=== PATIENT | male | born 1945 | race Caucasian/White ===

== ENCOUNTER → 2024-04-27 | Outpatient (CLI) | payer OTHER, MEDICAID, SELFPAY ==
[2024-04-27 10:32] LABS: Basophils # (Auto) 0.1 Thou/mm3 (0.0-0.2); Basophils % (Auto) 1 % (0-2.5); Eosinophils # (Auto) 0.3 Thou/mm3 (0.0-0.5); Eosinophils % (Auto) 5 % (0-10); Hematocrit 50.3 % (41.0-53.0); Hemoglobin 16.4 g/dL (13.5-16.0); Immature Granulocytes % (Auto) 0 % (0-0); Immature Granulocytes Auto 0.01 Thou/mm3 (0.00-0.00); Lymphocytes # (Auto) 0.8 Thou/mm3 (1.0-4.8); Lymphocytes % (Auto) 13 % (10-50); Mean Corpuscular HGB Conc 32.6 g/dl (31.0-37.0); Mean Corpuscular Hemoglobin 31.7 pg (25.0-35.0); Mean Corpuscular Volume 97 fL (80-100); Monocytes # (Auto) 0.6 Thou/mm3 (0.0-0.8); Monocytes % (Auto) 10 % (0-12); Neutrophils # (Auto) 4.2 Thou/mm3 (1.8-7.7); Neutrophils % (Auto) 71 % (37-80); Nucleated Red Blood Cell % 0 /100 WBC (0); Platelet Count 263 Thou/mm3 (140-440); RDW Standard Deviation 48.2 fL (35.1-43.9); Red Blood Count 5.18 Miln/mm3 (4.50-5.90); White Blood Count 5.9 Thou/mm3 (3.8-10.6)
[2024-04-27 11:01] LABS: Alanine Aminotransferase 18 U/L (10-49); Albumin, Serum 4.5 gm/dL (3.4-4.8); Alkaline Phosphatase 78 U/L (46-116); Anion Gap 5 (7-16); Aspartate Amino Transferase 28 U/L (0-34); BUN/Creatinine Ratio 14 Ratio (12-20); Bilirubin,Direct 0.3 mg/dL (0.0-0.3); Blood Urea Nitrogen 20 mg/dL (9-23); Calcium 9.7 mg/dL (8.3-10.6); Cardiac Risk Estimate 2.6 RATIO (4.0-6.7); Chloride 102 mMol/L (98-107); Cholesterol 171 mg/dL (132-200); Creatinine (Component) 1.4 mg/dL (0.6-1.3); Glucose 103 mg/dL (74-106); HDL Cholesterol 66 mg/dL (40-60); LDL Cholesterol,Calculated 90 mg/dL (0-130); Osmolality,Calculated 278 (275-295); Potassium 4.6 mMol/L (3.4-5.1); Sodium 138 mMol/L (136-145); Total Protein 6.6 gm/dL (5.7-8.2); Triglycerides 76 mg/dL (30-150); eGFR 51 See Note
[2024-04-27 13:59] LABS: Iron 135 mcg/dL (65-175)
== END | disposition home or self-care (01) ==
LOC: COPL 09:55
PROVIDERS: PCP Family Medicine; Referring Provider Family Medicine; Visit Provider Family Medicine
DX: I25.10 Atherosclerotic heart disease of native coronary artery without angina pectoris (principal); D64.9 Anemia, unspecified
CPT/HCPCS: 36415; 80048; 80061; 80076; 83540; 85025

== ENCOUNTER → 2025-03-25 | Outpatient (CLI) | payer OTHER, MEDICAID, SELFPAY ==
[2025-03-25 14:29] LABS: Basophils # (Auto) 0.0 Thou/mm3 (0.0-0.2); Basophils % (Auto) 1 % (0-2.5); Eosinophils # (Auto) 0.4 Thou/mm3 (0.0-0.5); Eosinophils % (Auto) 7 % (0-10); Hematocrit 43.3 % (41.0-53.0); Hemoglobin 14.6 g/dL (13.5-16.0); Immature Granulocytes Auto 0.02 Thou/mm3 (0.00-0.00); Lymphocytes # (Auto) 0.8 Thou/mm3 (1.0-4.8); Lymphocytes % (Auto) 16 % (10-50); Mean Corpuscular HGB Conc 33.7 g/dl (31.0-37.0); Mean Corpuscular Hemoglobin 31.9 pg (25.0-35.0); Mean Corpuscular Volume 95 fL (80-100); Monocytes # (Auto) 0.5 Thou/mm3 (0.0-0.8); Monocytes % (Auto) 10 % (0-12); Neutrophils # (Auto) 3.5 Thou/mm3 (1.8-7.7); Neutrophils % (Auto) 66 % (37-80); Nucleated Red Blood Cell # 0.00 Thou/mm3 (0.00-0.00); Nucleated Red Blood Cell % 0 /100 WBC (0); Platelet Count 259 Thou/mm3 (140-440); RDW Standard Deviation 47.7 fL (35.1-43.9); Red Blood Count 4.58 Miln/mm3 (4.50-5.90); White Blood Count 5.2 Thou/mm3 (3.8-10.6)
[2025-03-25 14:44] LABS: Alanine Aminotransferase 13 U/L (10-49); Albumin, Serum 4.0 gm/dL (3.4-4.8); Alkaline Phosphatase 67 U/L (46-116); Anion Gap 10 (7-16); Aspartate Amino Transferase 24 U/L (0-34); BUN/Creatinine Ratio 13 Ratio (12-20); Bilirubin,Direct 0.3 mg/dL (0.0-0.3); Bilirubin,Total 0.9 mg/dL (0.3-1.2); Blood Urea Nitrogen 18 mg/dL (9-23); Calcium 8.8 mg/dL (8.3-10.6); Carbon Dioxide 26.9 mMol/L (20.0-31.0); Cardiac Risk Estimate 2.2 RATIO (4.0-6.7); Chloride 104 mMol/L (98-107); Cholesterol 134 mg/dL (132-200); Creatinine (Component) 1.4 mg/dL (0.6-1.3); Free T4 (Free Thyroxine) 1.32 ng/dL (0.89-1.76); Glucose 93 mg/dL (74-106); HDL Cholesterol 60 mg/dL (40-60); LDL Cholesterol,Calculated 61 mg/dL (0-130); Osmolality,Calculated 283 (275-295); Potassium 4.2 mMol/L (3.4-5.1); Sodium 141 mMol/L (136-145); Thyroid Stimulating Hormone 1.03 uIU/mL (0.55-4.78); Total Protein 6.1 gm/dL (5.7-8.2); Triglycerides 65 mg/dL (30-150); eGFR 50 See Note
[2025-03-25 14:48] LABS: B-Type Natriuretic Peptide 47 pg/mL (0-100)
== END | disposition home or self-care (01) ==
LOC: COPL 13:38
PROVIDERS: PCP Family Medicine; Referring Provider Internal Medicine Cardiovascular Disease; Visit Provider Internal Medicine Cardiovascular Disease
DX: I11.0 Hypertensive heart disease with heart failure (principal); I50.9 Heart failure, unspecified; E78.5 Hyperlipidemia, unspecified; I20.9 Angina pectoris, unspecified
CPT/HCPCS: 36415; 80048; 80061; 80076; 83880; 84439; 84443; 85025

== ENCOUNTER 2025-05-27 23:11 | Emergency (ER) | payer OTHER, MEDICAID, SELFPAY ==
[2025-05-27 23:13] VITALS: BMI 20.2
--- NOTE | 2025-05-27 23:13 | EKG_ITS ---
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1945 Requested By: Warren Britton Order Number: [id number] Reading MD: Warren Britton Measurements Intervals [place] Rate: 75 P: 83 OR: 172 QRS: -78 QRSD: 150 T: 52 QT: 428 QTc: 480 Interpretive Statements SINUS RHYTHM WITH FREQUENT VENTRICULAR PREMATURE COMPLEXES INDETERMINATE AXIS RIGHT BUNDLE BRANCH BLOCK [120+ ms QRS DURATION, UPRIGHT V1, 40+ ms S IN I/aVL/V4/V5/V6] SEPTAL MYOCARDIAL INFARCTION , PROBABLY OLD [40+ ms Q WAVE IN V1/V2] Compared to ECG 01/12/2022 10:11:49 Ventricular premature complex(es) now present Myocardial infarct finding now present /store/S0/[id number]/ecg/[id number].pdf
[2025-05-27 23:24] VITALS: BP 153/88; PULSE 77; RESP 18; TEMP 36.4; O2SAT 96
--- NOTE | 2025-05-27 23:56 | XR_ITS ---
Examination: CT abdomen and pelvis without contrast. Coronal 3-D reconstructions. Sagittal 2-D reconstructions. Date and time of exam: May 28, 2025, 0017 hours INDICATIONS: Onset right-sided flank pain today CTDI: vol (mGy): 6 DLP: (mGycm): 358 Technique: Axial images of the abdomen have been obtained, 3 mm slice thickness Intravenous contrast material has not been administered. Low dose protocols were performed. One or more of the following dose reduction techniques were used; automated exposure control, adjustment of the mA and/or KV according to patient size, use of iterative reconstruction technique. Findings: 4 mm, 3 mm, 4 mm pulmonary nodules at the right lung base Air beneath the right hemidiaphragm anteriorly, image 47 which appears to be within the colon interposed between the hemidiaphragm and the liver coronal image 34 Spleen is not enlarged Gastric mucosa appears thickened Contracted gallbladder Moderate renal scar formation No renal or ureteral calculi, no hydronephrosis Fat-containing inguinal hernia Mildly fluid distended small bowel loops Left inguinal hernia containing a portion of the sigmoid colon no incarcerated bowel or bowel obstruction Mild prostatomegaly No bladder mass Severe osteopenia Diffuse advanced lumbar degenerative disc disease IMPRESSION: No renal or ureteral calculi, no hydronephrosis No bladder mass or bladder calculi Left inguinal hernia containing sigmoid colon but no incarcerated bowel or bowel obstruction
--- NOTE | 2025-05-27 23:56 | XR_ITS ---
EXAMINATION: PA chest single view TECHNIQUE: Upright PA chest single view Date and time: May 28, 2025, 0035 hours, comparison September 29, 2020 INDICATIONS: Chest pain shortness of breath today. FINDINGS: Normal heart size Prominent central pulmonary arteries Mild to moderate elevation right hemidiaphragm No pneumonia or pulmonary edema IMPRESSION: Suspicious for pulmonary artery hypertension No pneumonia or pulmonary edema
--- NOTE | 2025-05-27 23:57 | PD.EDRME ---
Rapid Medical Screening Exam RME Arrival date/time: 05/27/25 23:11 80M with history of GA/CAD (on Plavix), colon cancer, and HTN presents to ED with R flank pain. Patient believe he's passing a kidney stone. No gross dysuria/hematuria or N/V. Some SOB, but no CP. Chief Complaint: Back Pain/Injury Vital signs: Vital Signs Temperature 97.6 F 05/27/25 23:24 Pulse Rate 77 05/27/25 23:24 Respiratory Rate 18 05/27/25 23:24 Blood Pressure 153/88 H 05/27/25 23:24 Pulse Oximetry (%) 96 05/27/25 23:24 Oxygen Delivery Method Room Air 05/27/25 23:24 Exam: No gross CVA tenderness. Mildly elevated WOB. Clinical Impression: kidney stone vs UTI/pyelo vs cancer pain vs dissection vs CHF
[2025-05-28 00:23] LABS: Basophils # (Auto) 0.1 Thou/mm3 (0.0-0.2); Basophils % (Auto) 1 % (0-2.5); Eosinophils # (Auto) 0.9 Thou/mm3 (0.0-0.5); Eosinophils % (Auto) 11 % (0-10); Hematocrit 47.1 % (41.0-53.0); Hemoglobin 15.5 g/dL (13.5-16.0); Immature Granulocytes Auto 0.02 Thou/mm3 (0.00-0.00); Lymphocytes # (Auto) 0.8 Thou/mm3 (1.0-4.8); Lymphocytes % (Auto) 9 % (10-50); Mean Corpuscular HGB Conc 32.9 g/dl (31.0-37.0); Mean Corpuscular Hemoglobin 32.0 pg (25.0-35.0); Mean Corpuscular Volume 97 fL (80-100); Monocytes # (Auto) 0.9 Thou/mm3 (0.0-0.8); Monocytes % (Auto) 10 % (0-12); Neutrophils # (Auto) 5.8 Thou/mm3 (1.8-7.7); Neutrophils % (Auto) 69 % (37-80); Nucleated Red Blood Cell # 0.00 Thou/mm3 (0.00-0.00); Nucleated Red Blood Cell % 0 /100 WBC (0); Platelet Count 275 Thou/mm3 (140-440); RDW Standard Deviation 47.6 fL (35.1-43.9); Red Blood Count 4.84 Miln/mm3 (4.50-5.90); White Blood Count 8.4 Thou/mm3 (3.8-10.6)
[2025-05-28] MEDS: HYDROcodone/APAP 5/325 TABLET 1 TAB PO (00:59)
[2025-05-28 01:03] LABS: Alanine Aminotransferase 17 U/L (10-49); Albumin, Serum 4.7 gm/dL (3.4-4.8); Albumin/Globulin Ratio 2.0 (1.2-2.2); Alkaline Phosphatase 72 U/L (46-116); Anion Gap 9 (7-16); Aspartate Amino Transferase 24 U/L (0-34); BUN/Creatinine Ratio 17 Ratio (12-20); Bilirubin,Total 0.5 mg/dL (0.3-1.2); Blood Urea Nitrogen 26 mg/dL (9-23); Calcium 9.8 mg/dL (8.3-10.6); Calcium (Corrected) 9.8 mg/dL (8.5-10.1); Carbon Dioxide 30.1 mMol/L (20.0-31.0); Chloride 104 mMol/L (98-107); Creatinine (Component) 1.5 mg/dL (0.6-1.3); Estimated Creatinine Clearance 35.9 mL/min (>60); Globulin 2.4 gm/dL (2.3-3.5); Glucose 106 mg/dL (74-106); Magnesium 2.3 mg/dL (1.6-2.6); Osmolality,Calculated 289 (275-295); Potassium 4.6 mMol/L (3.4-5.1); Sodium 143 mMol/L (136-145); Total Protein 7.1 gm/dL (5.7-8.2); Troponin I 0.034 ng/mL (0.0-0.045); eGFR 46 See Note
[2025-05-28 01:05] LABS: Collection Type, Urine Clean Catch; Squamous Epithelial Cell,Urine 0 /hpf (0-5)
[2025-05-28 01:11] LABS: Bilirubin,Urine Negative (Negative); Blood,Urine Trace (Negative); Clarity,Urine Clear (Clear/Hazy); Color,Urine Lt-Yellow (Lt Yel-Yel); Culture Indicated,Urine Not Indicated; Glucose, Urine Negative (Negative); Ketones,Urine Negative (Negative); Leukocyte Esterase,Urine Negative (Negative); Nitrite,Urine Negative (Negative); PH,Urine 6.5 (5.0-7.0); Protein,Urine Negative (Neg - Trace); RBC,Urine 25 /hpf (0-3); Specific Gravity,Urine 1.020 (1.001-1.035); Urobilinogen,Urine Negative mg/dL (0.0-1.0); WBC,Urine < 1 /hpf (0-5)
[2025-05-28 01:20] LABS: Amphetamine/Methamp Scrn,U Positive (Negative); Barbiturate Screen,Urine Negative (Negative); Benzodiazepines Screen,Urine Negative (Negative); Benzoylecgonine Screen, Ur Negative (Negative); Fentanyl Screen,Urine Negative (Negative); Opiate Screen,Urine Negative (Negative); THC Screen,Urine Negative (Negative)
--- NOTE | 2025-05-28 01:34 | PD.EDBACK ---
ED Back Injury Pain RME/HPI General Chief Complaint: Back Pain/Injury Stated Complaint: I THINK I'M GOING TO PASS A KIDNEY STONE Arrival date/time: 05/27/25 23:11 RME / HPI RME / HPI Narrative: 05/27/25 23:11 80M with history of VT/CAD (on Plavix), colon cancer, and HTN presents to ED with R flank pain. Patient believe he's passing a kidney stone. No gross dysuria/hematuria or N/V. Some SOB, but no CP. Dr. Armendariz?s Main ED Evaluation: 80yo male presenting with increasing right flank pain x 3 days. Reports associated fever and chills. Patient denies increasing urinary frequency, nausea, vomiting, or diarrhea. PMH includes kidney stones, HTN, ?VT. PSH unremarkable. Social history unremarkable. NKA. Related Data Home Medications ?Medication ?Instructions ?Recorded ?Confirmed atorvastatin 10 mg tablet (Lipitor) 10 mg PO HS #0 tabs 08/03/15 11/19/23 carvedilol 6.25 mg tablet (Coreg) 6.25 mg PO BID #0 tabs 08/03/15 11/19/23 furosemide 40 mg tablet (Lasix) 40 mg PO QAM #0 tabs 08/03/15 11/19/23 lisinopril 2.5 mg tablet 2.5 mg PO QDAY #0 tabs 08/03/15 11/19/23 clopidogrel 75 mg tablet 75 mg PO QDAY 06/12/18 11/19/23 famotidine 40 mg tablet 20 mg PO BID 09/29/20 11/19/23 nitroglycerin 0.4 mg sublingual 0.4 mg sublingual Q5M PRN 07/23/23 11/19/23 tablet Previous Rx's ?Medication ?Instructions ?Recorded acetaminophen 300 mg-codeine 15 mg 1 tab PO Q8H PRN pain #20 tabs 05/28/25 tablet cyclobenzaprine 10 mg tablet 5 mg (1/2 x 10 mg) PO BID PRN 05/28/25 muscle spasm 7 days #7 tabs lactulose 10 gram/15 mL oral 15 ml PO BID PRN constipation #300 05/28/25 solution mL Allergies Allergy/AdvReac Type Severity Reaction Status Date / Time No Known Allergies Allergy Verified 05/27/25 23:12 Review of Systems Review of Systems Systems Reviewed: All systems reviewed, normal except as documented ED Exam Narrative Physical exam: GENERAL APPEARANCE: alert and oriented x 4, well-developed, well-nourished, nontoxic, no acute distress VITALS: All vitals were reviewed and the pulse ox is 96% on room air, which is normal according to my interpretation. HEENT: Normocephalic, atraumatic; pupils equal, round, reactive to light; EOMI; mucous membranes pink, moist; oropharynx clear NECK: Supple LUNGS: CTABL; no wheezes, no rales, no rhonchi HEART: Regular rate, regular rhythm; normal S1, S2; no murmurs ABDOMEN: non distended; normal BS; soft, no tenderness, no guarding EXTREMITIES: atraumatic; no edema NEUROLOGIC: awake; alert and oriented x4; cranial nerves II-XII grossly intact; no focal sensory or motor deficits PSYCHIATRIC: appropriate mood and affect SKIN: warm, dry, normal color; no rashes Course Quality Measures none Orders Category Date Time Status EKG (ED ONLY) *Do not use* NOW Care 05/27/25 23:[address] abdomen pelvis wo con Stat Exams 05/27/25 23:56 Completed EKG (ED Only) Stat Exams 05/27/25 23:13 Draft XR chest 1V portable Stat Exams 05/27/25 23:56 Completed CBC Stat Lab 05/27/25 23:59 Completed Comprehensive Metabolic Panel Stat Lab 05/27/25 23:59 Completed Drug Screen,Urine Stat Lab 05/28/25 00:53 Completed Magnesium Stat Lab 05/27/25 23:59 Completed Troponin I Stat Lab 05/27/25 23:59 Completed Urinalysis, C/S if Indicated Stat Lab 05/28/25 00:53 Completed HYDROcodone*/APAP 5/325 [Mather 5/325] Med 05/27/25 23:56 Discontinued 1 tab PO X1 ONE Vital Signs Vital signs: Vital Signs Temperature 97.6 F 05/27/25 23:24 Pulse Rate 77 05/27/25 23:24 Respiratory Rate 18 05/27/25 23:24 Blood Pressure 153/88 H 05/27/25 23:24 Pulse Oximetry (%) 96 05/27/25 23:24 Oxygen Delivery Method Room Air 05/27/25 23:24 Back Pain / Injury MDM Narrative MDM Narrative:: Scribe Attestation: 05/28/25 - Misty Esteban, teresa scribing for and in the presence of Dr. Armendariz. 80yo male presenting with increasing right flank pain x 3 days. Reports associated fever and chills. Patient denies increasing urinary frequency, nausea, vomiting, or diarrhea. Please see PE findings. Labs including CBC and chemistries are unremarkable. UA with evidence of hematuria. Patient administered Mather and underwent CT abdomen pelvis without acute process, no constipation. CXR showed COPD-like changes. On serial re-evaluation, patient is resting comfortably. Will give general laxative and recommend increase fluids. Close follow-up recommended. Upon further inquiry, patient notes that he has been performing strenuous activity recently. Will consider adding a muscle relaxant and low-dose narcotic analgesic to mild laxative. Dx: right flank pain, constipation. Patient data External records reviewed:: [facility] previous records (Per chart review, patient was seen here on 09/29/20 for chest pain.) Clinical information provided by:: patient Social determinants that could affect healthcare access:: none Patient has the following chronic illnesses:: CAD, HTN, anemia, malignant neoplasm of the colon, BPH How is presenting disease/condition affected by chronic disease/condition?: uneffected by Evaluation data The following diagnostics were reviewed and interpreted by me:: lab results, radiology exam(s) and EKG tracing(s) Lab and/or radiology exams considered but not ordered:: none Interpretation Summary: EKG done at 2321, sinus rhythm, rate of 75, occasional PACs and PVCs, underlying RBBB, right axis deviation, possible previous septal wall VT, according to my interpretation. Teler[facility] Preliminary Report Draft Patient: TAMMY COX. Record#: [id number] Birthdate: 1945 Age/Sex: 80 / M Location: [facility] Attending Dr: Ordering Physician: Date of Service: Procedure(s): Accession Number(s): cc: ~ CT scan of the abdomen and pelvis without intravenous contrast (axial sections with sagittal and coronal reformats) May 28, 2025 0017 hours Clinical History: Right flank pain Comparison: None. Findings: There are nodules at the lung bases bilaterally, the largest in the right lower lobe measuring 4 mm. No evidence of renal/ureteric calculus or hydroureteronephrosis. The liver, gallbladder, pancreas, spleen and adrenals are unremarkable on this noncontrast study. A moderate amount of fecal material is present in the colon. There are multiple colonic diverticula without evidence of diverticulitis. There is a left inguinal hernia containing a portion of sigmoid colon. There are postoperative changes in the right colon. No evidence of bowel obstruction. The urinary bladder is unremarkable. There is mild prostatic enlargement indenting the base of urinary bladder. There is no free fluid or free air. The abdominal aorta demonstrates atheromatous calcification without evidence of aneurysm. Degenerative changes are identified in the spine. Impression: 1. No evidence of renal/ureteric calculus or hydroureteronephrosis. 2. Colonic diverticulosis without evidence of acute diverticulitis. 3. Other findings as described above. Report Electronically Signed By: Gary Love 05/28/2025 2:41:42 AM [EST] Medications / Prescriptions Medications or Prescriptions considered but not ordered:: none Medication administrations:: Medication Administration History Discontinued Medications Hydrocodone Bitart/Acetaminophen (Hydrocodone/Apap 5/325 Tablet) 1 tab PO X1 ONE Stop: 05/27/25 23:57 Last Admin: 05/28/25 00:59 Dose: 1 tab Documented By: EB see above Consultations Consultation(s) initiated? (list below): No Diagnosis Differential diagnosis back pain/injury: strain of lumbar region, renal colic, pyelonephritis and other (UTI) Most likely diagnosis given after review of the tests above:: see clinical impression below Admission Indicated Admission indicated?: not indicated Admission Request Was there a request for admission?: No Disposition Plan Disposition Plan: Discharge Discharge Attestation Discharge Attestation: The patient and all family members were given an opportunity to ask questions and understood the discharge instructions. Discharge instructions specifically effects, indications for sooner follow up or return to the emergency department, and the expected course of current diagnosis. Patient condition: Stable Discharge Plan Plan Patient Disposition: HOME (Self Care) Discharge Disposition comment: Stable Patient condition on transfer: Stable Prescriptions/Referrals Prescriptions/Med Rec: New acetaminophen-codeine 300-15 mg tablet 1 tab PO Q8H MDD 3 tab PRN (Reason: pain) Qty: 20 0RF cyclobenzaprine 10 mg tablet 5 mg PO BID PRN (Reason: muscle spasm) 7 Days Qty: 7 0RF lactulose 10 gram/15 mL solution 15 ml PO BID PRN (Reason: constipation) Qty: 300 0RF No Action nitroglycerin 0.4 mg tablet, sublingual 0.4 mg sublingual Q5M PRN Rx Instructions: do not exceed 3 doses per episode furosemide [Lasix] 40 MG tablet 40 mg PO QAM Qty: 0 carvedilol [Coreg] 6.25 MG tablet 6.25 mg PO BID Qty: 0 atorvastatin [Lipitor] 10 MG tablet 10 mg PO HS Qty: 0 lisinopril 2.5 MG tablet 2.5 mg PO QDAY Qty: 0 clopidogrel 75 mg Tablet 75 mg PO QDAY famotidine 40 mg Tablet 20 mg PO BID Rx Instructions: half tab po bid. Referrals: Juan Gandhi MD [Primary Care Provider, Family Practice] - In 1 week Problem List Clinical Impression: Acute right flank pain, Constipation Impression comment: Right flank pain/constipation Patient/Caregiver Discharge Instructions Discharge Activity: activity as tolerated Print Language: Luxembourgish Stand Alone Forms: Pham Award Info., Patient Portal Info Letter
[2025-05-28 02:22] VITALS: BP 163/80; PULSE 66; RESP 18; TEMP 36.7; O2SAT 98
--- NOTE | 2025-05-28 02:42 | PRELIM_ITS ---
CT scan of the abdomen and pelvis without intravenous contrast (axial sections with sagittal and coronal reformats) May 28, 2025 0017 hours Clinical History: Right flank pain Comparison: None. Findings: There are nodules at the lung bases bilaterally, the largest in the right lower lobe measuring 4 mm. No evidence of renal/ureteric calculus or hydroureteronephrosis. The liver, gallbladder, pancreas, spleen and adrenals are unremarkable on this noncontrast study. A moderate amount of fecal material is present in the colon. There are multiple colonic diverticula without evidence of diverticulitis. There is a left inguinal hernia containing a portion of sigmoid colon. There are postoperative changes in the right colon. No evidence of bowel obstruction. The urinary bladder is unremarkable. There is mild prostatic enlargement indenting the base of urinary bladder. There is no free fluid or free air. The abdominal aorta demonstrates atheromatous calcification without evidence of aneurysm. Degenerative changes are identified in the spine. Impression: 1. No evidence of renal/ureteric calculus or hydroureteronephrosis. 2. Colonic diverticulosis without evidence of acute diverticulitis. 3. Other findings as described above. Report Electronically Signed By: Gary Love 05/28/2025 2:41:42 AM [EST]
[2025-05-28 04:11] VITALS: BP 138/74; PULSE 68; RESP 14; TEMP 36.6; O2SAT 97
== END 2025-05-28 04:13 | disposition home or self-care (01) ==
PROVIDERS: Physician Assistant; Emergency Provider Emergency Medicine; PCP Family Medicine
DX: K59.00 Constipation, unspecified (principal); K57.30 Diverticulosis of large intestine without perforation or abscess without bleeding; I49.3 Ventricular premature depolarization; I45.10 Unspecified right bundle-branch block; I10 Essential (primary) hypertension; I25.10 Atherosclerotic heart disease of native coronary artery without angina pectoris; R07.9 Chest pain, unspecified
CPT/HCPCS: 36415; 71045; 74176; 80053; 80307; 81001; 83735; 84484; 85025; 93005; 99283; A9270

== ENCOUNTER 2025-06-13 17:49 | Observation (INO) | payer OTHER, MEDICAID, SELFPAY ==
[2025-06-13 18:57] VITALS: BP 96/63; PULSE 82; RESP 18; TEMP 37.1; O2SAT 95
--- NOTE | 2025-06-13 19:07 | XR_ITS ---
Examination: CT abdomen and pelvis without contrast. Coronal 3-D reconstructions. Sagittal 2-D reconstructions. Date and time of exam: June 13, 2025, 1918 hours, comparison May 28, 2025 INDICATIONS: Lower abdominal pain beginning 2 weeks ago, history of shingles CTDI: vol (mGy): 6.12 DLP: (mGycm): 339 Technique: Axial images of the abdomen have been obtained, 3 mm slice thickness Intravenous contrast material has not been administered. Low dose protocols were performed. One or more of the following dose reduction techniques were used; automated exposure control, adjustment of the mA and/or KV according to patient size, use of iterative reconstruction technique. Findings: No focal liver or splenic lesions Distended gallbladder Enlarged common bile duct 9 mm no definite stones No pancreatic mass Small kidneys with moderate renal scar formation 25 mm fat-containing umbilical hernia Moderate fluid distended colon Significant fluid distended small bowel Colonic diverticulosis, no diverticulitis Transverse prostate dimension 3.9 cm Advanced degenerative disc disease L4-L5, L5-S1 Impression: Distended gallbladder with enlarged common bile duct 9 mm, recommend hepatobiliary sonography follow-up Moderate renal scar formation, no hydronephrosis Mild colonic ileus Multiple fluid distended small bowel loops, differential would include ileus, enteritis, early small bowel obstruction, clinical correlation advised
--- NOTE | 2025-06-13 19:07 | PD.EDRME ---
Rapid Medical Screening Exam RME Arrival date/time: 06/13/25 17:49 This is a case of 80-year-old male with history of inguinal hernia recently diagnosed with shingles came in with abdominal pain nausea vomiting for 2 days worsening of the symptoms this patient decided to sought consult here in the emergency room Chief Complaint: Abdominal Pain Time Seen by Provider: 06/13/25 18:36 Vital signs: Vital Signs Temperature 98.7 F 06/13/25 18:57 Pulse Rate 82 06/13/25 18:57 Respiratory Rate 18 06/13/25 18:57 Blood Pressure 96/63 06/13/25 18:57 Pulse Oximetry (%) 95 06/13/25 18:57 Oxygen Delivery Method Room Air 06/13/25 18:57 Exam: Moderate tenderness both lower abdomen no guarding no rebound no rigidity Clinical Impression: Abdominal pain
[2025-06-13 19:47] LABS: Basophils # (Auto) 0.0 Thou/mm3 (0.0-0.2); Basophils % (Auto) 1 % (0-2.5); Eosinophils # (Auto) 0.1 Thou/mm3 (0.0-0.5); Eosinophils % (Auto) 2 % (0-10); Hematocrit 51.9 % (41.0-53.0); Hemoglobin 17.0 g/dL (13.5-16.0); Immature Granulocytes Auto 0.01 Thou/mm3 (0.00-0.00); Lymphocytes # (Auto) 0.6 Thou/mm3 (1.0-4.8); Lymphocytes % (Auto) 11 % (10-50); Mean Corpuscular HGB Conc 32.8 g/dl (31.0-37.0); Mean Corpuscular Hemoglobin 31.1 pg (25.0-35.0); Mean Corpuscular Volume 95 fL (80-100); Monocytes # (Auto) 1.1 Thou/mm3 (0.0-0.8); Monocytes % (Auto) 21 % (0-12); Neutrophils # (Auto) 3.4 Thou/mm3 (1.8-7.7); Neutrophils % (Auto) 66 % (37-80); Nucleated Red Blood Cell # 0.00 Thou/mm3 (0.00-0.00); Nucleated Red Blood Cell % 0 /100 WBC (0); Platelet Count 316 Thou/mm3 (140-440); RDW Standard Deviation 45.9 fL (35.1-43.9); Red Blood Count 5.47 Miln/mm3 (4.50-5.90); White Blood Count 5.1 Thou/mm3 (3.8-10.6)
[2025-06-13 20:17] LABS: Alanine Aminotransferase 15 U/L (10-49); Albumin, Serum 4.4 gm/dL (3.4-4.8); Albumin/Globulin Ratio 1.4 (1.2-2.2); Alkaline Phosphatase 85 U/L (46-116); Anion Gap 12 (7-16); Aspartate Amino Transferase 24 U/L (0-34); BUN/Creatinine Ratio 15 Ratio (12-20); Bilirubin,Total 1.1 mg/dL (0.3-1.2); Blood Urea Nitrogen 35 mg/dL (9-23); Calcium 10.0 mg/dL (8.3-10.6); Calcium (Corrected) 10.0 mg/dL (8.5-10.1); Carbon Dioxide 22.6 mMol/L (20.0-31.0); Chloride 101 mMol/L (98-107); Creatinine (Component) 2.3 mg/dL (0.6-1.3); Globulin 3.1 gm/dL (2.3-3.5); Glucose 120 mg/dL (74-106); Lipase 51 U/L (12-53); Osmolality,Calculated 280 (275-295); Potassium 5.6 mMol/L (3.4-5.1); Sodium 136 mMol/L (136-145); Total Protein 7.5 gm/dL (5.7-8.2); eGFR 28 See Note
--- NOTE | 2025-06-13 21:03 | XR_ITS ---
Small bowel exam on 06/14/2025 at 12:54AM Clinical history: Rule out small bowel obstruction Contrast media: Patient ingested 120 mL of Gastrografin orally FINDINGS: A total of 6 films of the abdomen have been made. The initial film shows the contrast within the stomach fundus. The next film taken 30 minutes later shows contrast within the descending duodenum and within the proximal third of the small intestine. There is also a Stokes catheter in place in the urinary bladder. The third film taken 30 minutes later shows contrast media filling about 60% of the small bowel there is definite abnormal dilatation of many of these loops, the greatest diameter is 4.2 cm. The fourth shows contrast media progressing farther into the small bowel, again noted is definite abnormal dilatation of the small bowel loops. The valvulae conniventes are normal and thin, they are not abnormally thickened this rules out bowel wall edema fairly well The fifth film shows contrast media filling the a sending transverse and mid descending colon ruling out the presence of a complete small bowel obstruction. However the terminal loops of ileum are normal caliber, diameter 1.9 cm. The #5 Film 4 hours after ingestion of the contrast shows additional contrast filling the distal sigmoid and rectum. On the fifth and sixth films multiple loops of the abnormally distended small bowel show greater distention, diameter of 4.5 cm, and they show definite edematous thickening of the mucosal folds The lower lungs are clear. IMPRESSION: 1. This small bowel study rules out the possibility of a complete small bowel obstruction, however it is significantly abnormal about 90% of the small bowel loops are significantly abnormally dilated and on the latter 2 films there is definite abnormal edematous thickening of several of the mucosal folds. 2 in view of the fact that this patient has had previous abdominal surgery in 2018, postoperative adhesions with partial small bowel obstruction is the main consideration
--- NOTE | 2025-06-13 21:25 | EDNOTE_ITS ---
ED General RME/HPI General Chief complaint: Abdominal Pain Stated complaint: DEHYDRATED, SHINGLES, ABD PAIN, FOGGY THINKING Time Seen by Provider: 06/13/25 18:36 Arrival date/time: 06/13/25 17:49 CC: Abdominal pain and inability urinate HPI ongoing for the past several days denies fever chills chest pain shortness of breath or difficulty breathing. RME / HPI RME / HPI narrative: 06/13/25 17:49 This is a case of 80-year-old male with history of inguinal hernia recently diagnosed with shingles came in with abdominal pain nausea vomiting for 2 days worsening of the symptoms this patient decided to sought consult here in the emergency room Exam: Moderate tenderness both lower abdomen no guarding no rebound no rigidity Impression: Abdominal pain Related Data Home Medications ?Medication ?Instructions ?Recorded ?Confirmed atorvastatin 10 mg tablet (Lipitor) 10 mg PO HS #0 tab s 08/03/15 06/14/25 carvedilol 6.25 mg tablet (Coreg) 6.25 mg PO BID #0 ta bs 08/03/15 06/14/25 furosemide 40 mg tablet (Lasix) 40 mg PO QAM #0 tabs 0 08/03/15 06/14/25 lisinopril 2.5 mg tablet 2.5 mg PO QDAY #0 tabs 08/0306/14/25 clopidogrel 75 mg tablet 75 mg PO QDAY 06/12/1806/14 famotidine 40 mg tablet 20 mg PO BID 09/29/20 nitroglycerin 0.4 mg sublingual 0.4 mg sublingual Q5M PRN chest 07/23/23 06/14/25 tablet pain Previous Rx's ?Medication ?Instructions ?Recorded acetaminophen 300 mg-codeine 15 mg 1 tab PO Q8H PRN pa in #20 tabs 05/28/25 tablet Allergies Allergy/AdvReac Type Severity Reaction Status Date / Time No Known Allergies Allergy Verified 06/13/25 17:52 Review of Systems Review of Systems Narrative Review of Systems: GEN: No fever, no chills, no weight loss EYES: No discharge, no visual changes, no pain HEENT: No ear pain, no congestion, no sore throat PULM: No shortness of breath, no cough, no congestion CV: No chest pain, no dyspnea on exertion, no palpitations GI: No nausea, no vomiting, no diarrhea, + pain, no constipation : No frequency, no urgency, no dysuria MUSC/SKEL: No joint pain, no back pain SKIN: No rash PSYCH: No hallucinations, no depression HEME/LYMPH: No easy bleeding or bruising tendencies NEURO: No weakness, no headache Past Medical History Past Medical History NEUROLOGIC: Negative Neurological Disorders or Seizures CARDIAC: Positive Cardiac Disorders, Myocardial Infarction, Atherosclerotic Heart Disease, Congestive Heart Failure and Hypertension RESPIRATORY: Negative Chronic Obstructive Pulmonary Disease (COPD) GASTROINTESTINAL: Positive Gastrointestinal Disorders, Mcmanus's Esophagus, Colorectal Cancer and Hiatal Hernia; Negative Hepatitis GENITOURINARY: Positive Genitourinary Disorders, Renal Disease (kidney stones) and Kidney Stones; Negative Prostate Cancer REPRODUCTIVE: Negative Breast Cancer or Testicular Cancer MUSCULOSKELETAL: Negative Musculoskeletal Disorders or Bone Cancer ENDOCRINE: Negative Endocrine Disorders, Diabetes Mellitus Type 1 or Diabetes Mellitus Type 2 HEMATOLOGIC: Positive Blood Disorders and Anemia OTHER HISTORY: Positive Blood Transfusions, Cancer and Colorectal Cancer; Negative Hospitalization, Autoimmune Disease, Down Syndrome, Developmental Delay, Shingles, Falls, Blood Transfusion Reaction, Anesthesia Reactions, Organ Transplant, Chemotherapy, Radiation Therapy, Hyperbaric Therapy, MRSA, VRSA, Vancomycin-Resistant Enterococci, Human Immunodeficiency Virus (HIV), Chicken Pox, Measles, Mumps, Rubella (Amharic Measles), Pertussis, Clostridium Difficile, Breast Cancer, Cervical Cancer, Lung Cancer, Ovarian Cancer, Prostate Cancer or Testicular Cancer Family History FAMILY HISTORY: Positive Family Cancer (mother-lung ca, father-colon ca); Negative Family Psychiatric Problems, Family Respiratory Disorders, Family Cardiac Disorders or Family Gastrointestinal Problems Surgical History SURGICAL: Positive Tonsillectomy, Abdominal Surgery (BOWEL SURGERY 10/09) and Bowel Surgery (2017); Negative Cardiac Surgery, Endocrine Surgery, Neurologic Surgery, Brain Shunt, Vasectomy or Organ Transplant Social History SMOKING STATUS: Never smoker SECOND HAND EXPOSURE: Yes SUBSTANCE USE: does not use ED Exam Narrative Physical exam: [General: Not in any acute distress Head normocephalic HEENT: Within acceptable limits Neck is supple nontender Chest equal chest rise nontender to palpation Respiratory: Clear to auscultation no wheezes crackles or rubs CV: Rate rhythm is regular no murmurs rubs or clicks Abdomen is soft mild tenderness, no masses positive bowel sounds all 4 quadrants Back: No CVA tenderness no spinous process tenderness from cervical spine thoracic and lumbar spine Skin: Intact no petechiae rash induration ulceration or crepitus Extremities: Moving all extremity against resistance cap refill less than 2 seconds neurosensory intact Neuro: Awake alert oriented x3 Glascow coma 15 no focal deficits] Course Course Course Narrative: Patient care assumed by Dr. Jamison. Quality Measures none Orders Category Date Time Status Patient Condition Routine Admission 06/14/25 02:36 Ordered Activity as Tolerated Routine Care 06/14/25 02:36 Ordered Stokes [Urinary Catheter] QS Care 06/13/25 22:38 Active Insert NG / OG tube NOW Care 06/14/25 01:22 Active NPO NOW Care 06/14/25 02:36 Active Notify provider NEEDED Care 06/14/25 02:36 Active Obtain weight NOW Care 06/14/25 02:36 Active Sequential Compression Device QSHIFT Care 06/14/25 02:36 Active Diet NPO (NOW) Diet 06/14/25 02:[address] abdomen pelvis wo con Stat Exams 06/13/25 19:07 Completed US gall bladder Stat Exams 06/13/25 21:28 Completed XR small bowel single contrast Stat Exams 06/13/25 21:03 Completed BMP [Basic Metabolic Panel] Stat Lab 06/14/25 02:31 Completed CBC AM DRAW Lab 06/14/25 08:05 Completed CBC AM DRAW Lab 06/15/25 05:00 Ordered CBC AM DRAW Lab 06/16/25 05:00 Ordered CBC Stat Lab 06/13/25 19:24 Completed Comprehensive Metabolic Panel AM DRAW Lab 06/14/25 08:05 Completed Comprehensive Metabolic Panel AM DRAW Lab 06/15/25 05:00 Ordered Comprehensive Metabolic Panel AM DRAW Lab 06/16/25 05:00 Ordered Comprehensive Metabolic Panel Stat Lab 06/13/25 19:24 Completed Lipase Stat Lab 06/13/25 19:24 Completed Lipid Panel AM DRAW Lab 06/14/25 08:05 Completed Magnesium AM DRAW Lab 06/14/25 08:05 Completed Magnesium AM DRAW Lab 06/15/25 05:00 Ordered Magnesium AM DRAW Lab 06/16/25 05:00 Ordered Urinalysis Stat Lab 06/13/25 22:35 Completed Midazolam Inj [Versed Inj] Med 06/14/25 01:22 Discontinued 4 mg IVP X1 ONE Ondansetron Inj [Zofran Inj] Med 06/14/25 02:36 Active 4 mg IVP Q6H PRN Sodium Chloride 0.9% 1000 ml [Ns] 1,000 ml Med 06/13/25 21:32 Discontinued IV 85 mls/hr Sodium Chloride 0.9% 1000 ml [Ns] 1,000 ml Med 06/13/25 21:32 Discontinued IV 999 mls/hr Code Status Routine Oth 06/14/25 02:36 Ordered Oxygen Delivery PRN RT 06/14/25 02:36 Active Vital Signs Vital signs: Vital Signs Temperature 98.7 F 06/13/25 18:57 Pulse Rate 82 06/13/25 18:57 Respiratory Rate 18 06/13/25 18:57 Blood Pressure 96/63 06/13/25 18:57 Pulse Oximetry (%) 95 06/13/25 18:57 Oxygen Delivery Method Room Air 06/13/25 18:57 Discharge Plan Plan Patient Disposition: Admit Acute Care w/in Hospital Problem List Clinical Impression: SBO (small bowel obstruction), Urinary retention 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 Glucose of 120. No other transaminitis T. bili elevation. Imaging Imaging interpretation: interpreted by id Imaging Interpretation(s): Dilated small bowel loops suggestive of SBO. Medication Administration(s) Medication Administration History Heparin Sodium (Porcine) (Heparin Sod Inj 5000 Unit/Ml Vial) 5,000 unit SC Q12HR [facility] [place] Stop: 06/28/25 08:59 Last Admin: 06/14/25 09:23 Dose: 5,000 unit Documented By: CT Co-signed By: DOLORES Acetaminophen (Ofirmev Inj) 1,000 mg in 100 mls @ 250 mls/hr IV Q6HR PRN PRN Reason: pain 1-10 Stop: 06/14/25 18:23 Last Admin: 06/14/25 05:19 Dose: 250 mls/hr Documented By: SORIN Lactated Ringer's (Lactated Ringers) 1,000 mls @ 75 mls/hr IV .[id number] [facility] Stop: 07/14/25 07:51 Ondansetron HCl (Ondansetron Inj 2 Mg/Ml Inj 2 Ml) 4 mg IVP Q6H PRN; Protocol PRN Reason: NAUSEA OR VOMITING Stop: 07/14/25 02:35 Last Admin: 06/14/25 03:15 Dose: 4 mg Documented By: SORIN Discontinued Medications Sodium Chloride (Ns) 1,000 mls @ 999 mls/hr IV .Q1H1M ONE Stop: 06/13/25 22:32 Last Infusion: 06/13/25 23:53 Dose: Infused Documented By: Admin: 06/13/25 22:20 Dose: 999 mls/hr Documented By: SORIN Sodium Chloride (Ns) 1,000 mls @ 85 mls/hr IV .[id number] [facility] Stop: 07/13/25 21:31 Last Admin: 06/13/25 22:19 Dose: 85 mls/hr Documented By: SORIN Midazolam HCl (Midazolam Inj 1 Mg/Ml Vial 2 Ml) 4 mg IVP X1 ONE Stop: 06/14/25 01:23 Last Admin: 06/14/25 02:10 Dose: Not Given Documented By: SORIN Non-Admin Reason: Cancelled by Provider Diagnosis Differential Diagnosis ED Complaint MDM: SBO, urinary retention, sepsis
--- NOTE | 2025-06-13 21:28 | XR_ITS ---
Examination: Abdomen sonogram, Limited Date and time of exam: June 13, 2025, 1118 hours INDICATIONS: Abdominal pain onset today, enlarged common bile duct on CT examination today Technique: Real-time soto scale transabdominal sonographic images of the upper abdomen obtained. Findings: Gallbladder sludge, negative for cholelithiasis, negative for cholecystitis Common bile duct 10 mm no stones noted Limited visualization Pancreas obscured by bowel gas Liver 12.3 cm no liver lesions Normal hepatopetal portal venous flow Patent IVC IMPRESSION: Gallbladder sludge, negative for cholelithiasis, negative for cholecystitis Poorly visualized enlarged common bile duct 10 mm no definite stones, if biliary colic is a clinical consideration, suggest MRCP follow-up
[2025-06-13 21:30] VITALS: BP 120/72; PULSE 91; RESP 16; TEMP 36.8; O2SAT 96
[2025-06-13] MEDS: SODIUM CHLORIDE 0.9% 1000 ML 1,000 ML 85 ML IV (22:19)
[2025-06-13] MEDS: SODIUM CHLORIDE 0.9% 1000 ML 1,000 ML 999 ML IV (22:20)
[2025-06-13 23:00] LABS: Collection Type, Urine Clean Catch
[2025-06-13 23:07] LABS: Bacteria,Urine Rare; Bilirubin,Urine 1+ (Negative); Blood,Urine 2+ (Negative); Clarity,Urine Clear (Clear/Hazy); Color,Urine Yellow (Lt Yel-Yel); Glucose, Urine Negative (Negative); Hyaline Casts,Urine 1 /hpf (0-1); Ketones,Urine Trace (Negative); Leukocyte Esterase,Urine Negative (Negative); Nitrite,Urine Negative (Negative); PH,Urine 5.5 (5.0-7.0); Protein,Urine 1+ (Neg - Trace); RBC,Urine 122 /hpf (0-3); Specific Gravity,Urine 1.029 (1.001-1.035); Squamous Epithelial Cell,Urine 1 /hpf (0-5); Urobilinogen,Urine 2.0 mg/dL (0.0-1.0); WBC,Urine 3 /hpf (0-5)
--- NOTE | 2025-06-13 23:10 | PD.EDADDENDU ---
Emergency Room Addendum <Misty Roche - Last Filed: 06/14/25 00:47> Addendum Narrative: 2300: Care assumed from Omero Cool NP. Past medical, surgical, social and family history reviewed. Vitals and home medications reviewed. Results and treatment plan discussed. I will assume the care of the patient at this time and will follow the patient. Please refer to the emergency department record for history and examination from initial visit. RADIOLOGY RESULTS: [facility] Report Signed Patient: TAMMY COX. Record#: [id number] Birthdate: 1945 Age/Sex: 80 / M Location: [facility] Attending Dr: Ordering Physician: Omero Cool NP Date of Service: 06/13/25 Procedure(s): US gall bladder Accession Number(s): [id number] cc: Omero Cool NP; Juan Gandhi MD; Leonidas Johnston MD~ Examination: Abdomen sonogram, Limited Date and time of exam: June 13, 2025, 1118 hours INDICATIONS: Abdominal pain onset today, enlarged common bile duct on CT examination today Technique: Real-time soto scale transabdominal sonographic images of the upper abdomen obtained. Findings: Gallbladder sludge, negative for cholelithiasis, negative for cholecystitis Common bile duct 10 mm no stones noted Limited visualization Pancreas obscured by bowel gas Liver 12.3 cm no liver lesions Normal hepatopetal portal venous flow Patent IVC IMPRESSION: Gallbladder sludge, negative for cholelithiasis, negative for cholecystitis Poorly visualized enlarged common bile duct 10 mm no definite stones, if biliary colic is a clinical consideration, suggest MRCP follow-up Dictated By: Leonidas Johnston MD Signed By: <Electronically signed by Leonidas Johnston MD in OV> 06/14/25 0002 <Anselmo Jamison DO - Last Filed: 06/14/25 01:32> Addendum Narrative: 230: Care assumed from Omero Cool NP. Past medical, surgical, social and family history reviewed. Vitals and home medications reviewed. Results and treatment plan discussed. I will assume the care of the patient at this time and will follow the patient. Please refer to the emergency department record for history and examination from initial visit. RADIOLOGY RESULTS: [facility] Report Signed Patient: TAMMY COX Record#: [id number] Birthdate: 1945 Age/Sex: 80 / M Location: [facility] Attending Dr: Ordering Physician: Omero Cool NP Date of Service: 06/13/25 Procedure(s): US gall bladder Accession Number(s): [id number] cc: Omero Cool NP; Juan Gandhi MD; Leonidas Johnston MD~ Examination: Abdomen sonogram, Limited Date and time of exam: June 13, 2025, 1118 hours INDICATIONS: Abdominal pain onset today, enlarged common bile duct on CT examination today Technique: Real-time soto scale transabdominal sonographic images of the upper abdomen obtained. Findings: Gallbladder sludge, negative for cholelithiasis, negative for cholecystitis Common bile duct 10 mm no stones noted Limited visualization Pancreas obscured by bowel gas Liver 12.3 cm no liver lesions Normal hepatopetal portal venous flow Patent IVC IMPRESSION: Gallbladder sludge, negative for cholelithiasis, negative for cholecystitis Poorly visualized enlarged common bile duct 10 mm no definite stones, if biliary colic is a clinical consideration, suggest MRCP follow-up Dictated By: Leonidas Johnston MD Signed By: <Electronically signed by Leonidas Johnston MD in OV> 06/14/25 0002 Case was signed out to me awaiting gallbladder ultrasound. I reviewed all labs and CT scan. Gallbladder ultrasound showed no stones but did show sludge but no wall thickening and no pericholecystic fluid. LFTs are normal. There is no leukocytosis. On physical exam the patient has lower abdominal tenderness and no tenderness to the right upper quadrant. CT scan shows evidence for dilated small bowel loops possibly the beginnings of a small bowel obstruction versus an ileus. Patient has had abdominal surgeries in the past consisting of a ventral abdominal wall hernia repair as well as a partial small bowel resection due to possible cancer. Patient is somewhat of a poor historian. I discussed this case with general surgeon on-call, Dr. Watters who will consult on this patient. An NG tube will be placed. I also discussed this case with the hospitalist who will admit this patient to the hospital for further treatment and evaluation. Diagnosis of small bowel obstruction
[2025-06-13 23:46] VITALS: BP 136/77; PULSE 99; RESP 22; TEMP 36.9; O2SAT 97
[2025-06-14] VITALS (9 sets, daily range): BP systolic 131–152; BP diastolic 75–92; PULSE 61–101; RESP 16–94; TEMP 36.4–36.7; O2SAT 94–98; BMI 21.6
--- NOTE | 2025-06-14 02:10 | PC.NURSE ---
DR. RICO AND DR. HIRSCH AT BEDSIDE SPEAKING AND ASSESSING PATIENT. PER DR. RICO DO NOT INSERT NG TUBE OR GIVE VERSED.
--- NOTE | 2025-06-14 02:41 | ESHP_ITS ---
Documentation for date of: 06/14/25 [facility] History of Present Illness History of present illness: Mr. Tidwell is a 80-year-old male with past medical history significant for hypertension, CAD (no history of stents ), history of multiple MIs, colon cancer status post surgical resection approximately 7 years ago presented to the ED complaining of abdominal pain and nausea. Patient is a poor historian and is very difficult to obtain a correct history. Patient reports he was constipated and followed up with his primary care and took milk of mag [id number] which caused him to have loose stools since yesterday. Patient denies any fever or chills, dysuria, melena or hematochezia. Patient states he has some nausea but denies any episodes of vomiting. Patient is unable to correctly identify exactly where the pain is, however he states he has inguinal hernia which has caused him pain for the past 2 months, as well as developed a rash on the right flank which was very painful and pruritic. Patient followed up in the ED and was told he has shingles and was prescribed valacyclovir which he initially states he did not take but then recalled that he may have completed the course. Patient denies any chest pain, palpitation or shortness of breath. Patient states he has an extensive history of multiple MIs in the past and coronary artery disease however no history of any stents patient follows Dr. Araiza outpatient regularly and is very compliant with all of his heart medications. Patient lives alone however his daughter lives on the same property and she is his equal opportunity counselor. Patient ambulates independently. Patient reports he had colon cancer 7 years ago which was resected by Dr. Dawn and regularly follows up at the cancer center every 6 months. Patient did not receive any chemo or radiation. Patient also reports he had history of umbilical hernia which was also repaired by Dr. Dawn. ED course In the ED initial blood pressure was 96/63, pulse 82, patient saturating on room air and has been remained afebrile Hemoglobin is 7.0, potassium 5.6 BUN 35 and creatinine 2.[address]: Distended gallbladder with enlarged common bile duct 9 mm, recommend, hepatobiliary sonography follow-up, Moderate renal scar formation, no hydronephrosis, Mild colonic ileus Multiple fluid distended small bowel loops, differential would include ileus,enteritis, early small bowel obstruction Gallbladder ultrasound: Gallbladder sludge, negative for cholelithiasis, negative for cholecystitis, Poorly visualized enlarged common bile duct 10 mm no definite stones ED contacted general surgery Dr. Ford who recommended admission for SBO PMH: HTN, CAD, Hx. of [place] and Hx. 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 mucous membranes moist. Eyes open, symmetrical, & clear HEART: Normal Heart Sounds LUNGS: Clear to auscultation with no wheezing or crackles. ABDOMEN: soft, non-distended, non-tender, bowel sounds heard, no guarding or rebound tenderness, multiple surgical scars noted SKIN: No Rash or ecchymoses, right flank rash that is scabbed EXTREMITIES: No edema, tenderness, able to move all 4 extremities, pedal pulses palpated Results: Labs 06/13/25 19:24 06/13/25 19:24 Labs: Short CBC 06/13/25 Range/Units 19:24 WBC 5.1 (3.8-10.6) Thou/mm3 Hgb 17.0 H (13.5-16.0) g/dL Hct 51.9 (41.0-53.0) % Plt Count 316 D (140-440) Thou/mm3 BMP 06/13/25 19:24 Sodium 136 Potassium 5.6 H Chloride 101 Carbon Dioxide 22.6 BUN 35 H Creatinine 2.3 H Glucose 120 H Calcium 10.0 Liver Function 06/13/25 Range/Units 19:24 Total Bilirubin 1.1 (0.3-1.2) mg/dL AST 24 (0-34) U/L ALT 15 (10-49) U/L Alkaline Phosphatase 85 (46-116) U/L Albumin 4.4 (3.4-4.8) gm/dL Urine 06/13/25 Range/Units 22:35 Urine Color Yellow (Lt Yel-Yel) Urine Clarity Clear (Clear/Hazy) Urine pH 5.5 (5.0-7.0) Ur Specific [place] 1.029 (1.001-1.035) Urine Protein 1+ A (Neg - Trace) Urine Glucose (UA) Negative (Negative) Quality Measures Quality Measures VTE prophylaxis Advance care planning discussed with:: patient Medications Home Medications and Allergies Home Medications ?Medication ?Instructions ?Recorded ?Confirmed ?Type atorvastatin 10 mg tablet (Lipitor) 10 mg PO HS #0 tab s 08/03/15 11/19/23 History carvedilol 6.25 mg tablet (Coreg) 6.25 mg PO BID #0 ta bs 08/03/15 11/19/23 History furosemide 40 mg tablet (Lasix) 40 mg PO QAM #0 tabs 0 08/03/15 11/19/23 History lisinopril 2.5 mg tablet 2.5 mg PO QDAY #0 tabs 08/0311/19/23 History clopidogrel 75 mg tablet 75 mg PO QDAY 06/12/1811/18 History famotidine 40 mg tablet 20 mg PO BID 09/29/20 History nitroglycerin 0.4 mg sublingual 0.4 mg sublingual Q5M PRN 07/23/23 11/19/23 History tablet Allergies Allergy/AdvReac Type Severity Reaction Status Date / Time No Known Allergies Allergy Verified 06/13/25 17:52 Visit Medications Sodium Chloride (Ns) 1,000 mls @ 85 mls/hr IV .[id number] ODALYS Stop: 07/13/25 21:31 Last Admin: 06/13/25 22:19 Dose: 85 mls/hr Ondansetron HCl (Ondansetron Inj 2 Mg/Ml Inj 2 Ml) 4 mg IVP Q6H PRN; Protocol PRN Reason: NAUSEA OR VOMITING Stop: 07/14/25 02:35 Discontinued Medications Sodium Chloride (Ns) 1,000 mls @ 999 mls/hr IV .Q1H1M ONE Stop: 06/13/25 22:32 Last Infusion: 06/13/25 23:53 Dose: Infused Midazolam HCl (Midazolam Inj 1 Mg/Ml Vial 2 Ml) 4 mg IVP X1 ONE Stop: 06/14/25 01:23 Assessment & Plan Plan Mr. Tidwell is a 80-year-old male with past medical history significant for hypertension, CAD (no history of stents ), history of multiple MIs, colon cancer status post surgical resection approximately 7 years ago presented to the ED complaining of abdominal pain and nausea. Patient is admitted for management of SBO. #Small bowel obstruction, early, vs. #Small Bowel ileus - Patient is a poor historian however in initial presentation per ED patient was complaining of abdominal pain with nausea patient denies any vomiting -CT of abdomen: Multiple fluid distended small bowel loops, differential would include ileus,enteritis, early small bowel obstruction Plan: - Small bowel series ordered by ED - NG tube was not placed because small bowel series was started prior to placement of NG tube - General Surgery consulted, Dr. Ford was called by ED - N.p.o. - Zofran for nausea as needed -Maintenance fluids ordered #Hyperkalemia - On admission potassium is 5.6, patient is given 2 L of fluid by the ED - Repeat CMP is pending #TONO on CKD - On admission creatinine 2.3 baseline creatinine is 1.5 - Patient denies any prior history of known kidney disease and does not follow any lead manufacturing engineer Plan: - 1 L bolus fluid given - Patient is started on maintenance fluids and repeat CMP is pending - Fluid nephrotoxic drugs and renally dose medications #CAD #History of [place] #Primary hypertension - Patient has history of multiple MIs and coronary artery disease but denies any stents - Patient follows Dr. Araiza outpatient regularly -Patient denies chest pain, pressure palpitation, or shortness of breath Plan: -Currently patient is n.p.o. due to SBO - Day team to resume home meds when able #Hx of Colon Cancer s/p resection - Patient has history of colon cancer approximately 7 years ago which was surgically resected and did not undergo any chemotherapy or radiation - Patient follows up at the cancer center regularly every 6 months Health Maintenance Disposition: Medsurg for early SBO DVT Prophylaxis: SCD QSHIFT GI Prophylaxis: not indicated Diet: NPO Lines: Peripheral lines Code status: Full Attending Provider Attestation/Addendum I, Khadijah Kim DO, attest that I was physically present for the delgado portions of the service and evaluated the patient with the resident and I reviewed and discussed the case with the resident and agree with the resident's findings and plans of care as documented above Patient is an 80-year-old male with past medical history of hypertension, CAD, colon cancer status post right hemicolectomy, BPH, anemia who presented to the ED due to abdominal discomfort. Patient states that his symptoms began with constipation and he had seen his PCP and was later given a laxative to help with his constipation. However, patient has had diarrhea for 2 to 3 days at this point and worsening abdominal pain. He denies any fevers or chills otherwise. He denies any nausea or vomiting, blood in stool, chest pain or shortness of breath. Patient states that he was recently treated for shingles on the right flank. No vesicles noted, healing scabs are noted. He states that he has occasional pain. However, on palpation of his mid abdominal region on the right side, patient has a lot of tenderness and some firmness noted. Bowel sounds are noted however. No distention noted. He has a history of umbilical hernia and inguinal hernias. CT abdomen pelvis was done in the ED showing multiple fluid distended small bowel loops concerning for ileus versus enteritis versus SBO. Has a distended gallbladder with enlarged CBD of 9 mm. Gallbladder ultrasound was done showing gallbladder sludge and no evidence of cholelithiasis or cholecystitis. LFTs are within normal limits. He is noted to have TONO on CKD as baseline creatinine appears to be around 1.4. Current creatinine is 2.3. Potassium is 5.6. Patient has received IV fluids in the ED. Will keep n.p.o. at this time. Admit to med/surge for further workup and medical management of possible SBO. Surgeon was called from ED and have recommended NG tube. However, patient had already taken Gastrografin and started small bowel follow- through at time of evaluation. Patient denies any nausea or vomiting. Will hold off on NG tube placement at this time.
[2025-06-14] MEDS: ONDANSETRON INJ 2 MG/ML INJ 2 ML 4 MG IVP ×2 (03:15→11:48)
[2025-06-14 04:01] LABS: Anion Gap 16 (7-16); BUN/Creatinine Ratio 16 Ratio (12-20); Blood Urea Nitrogen 31 mg/dL (9-23); Calcium 9.0 mg/dL (8.3-10.6); Carbon Dioxide 17.0 mMol/L (20.0-31.0); Chloride 106 mMol/L (98-107); Creatinine (Component) 2.0 mg/dL (0.6-1.3); Glucose 101 mg/dL (74-106); Osmolality,Calculated 284 (275-295); Potassium 4.3 mMol/L (3.4-5.1); Sodium 139 mMol/L (136-145); eGFR 33 See Note
[2025-06-14] MEDS: ACETAMINOPHEN IVPB 1,000 MG/100 ML VIAL 250 MG IV (05:19)
[2025-06-14 08:52] LABS: Basophils # (Auto) 0.0 Thou/mm3 (0.0-0.2); Basophils % (Auto) 0 % (0-2.5); Eosinophils # (Auto) 0.2 Thou/mm3 (0.0-0.5); Eosinophils % (Auto) 4 % (0-10); Hematocrit 46.6 % (41.0-53.0); Hemoglobin 15.3 g/dL (13.5-16.0); Immature Granulocytes Auto 0.01 Thou/mm3 (0.00-0.00); Lymphocytes # (Auto) 0.5 Thou/mm3 (1.0-4.8); Lymphocytes % (Auto) 11 % (10-50); Mean Corpuscular HGB Conc 32.8 g/dl (31.0-37.0); Mean Corpuscular Hemoglobin 31.2 pg (25.0-35.0); Mean Corpuscular Volume 95 fL (80-100); Monocytes # (Auto) 1.0 Thou/mm3 (0.0-0.8); Monocytes % (Auto) 21 % (0-12); Neutrophils # (Auto) 2.9 Thou/mm3 (1.8-7.7); Neutrophils % (Auto) 63 % (37-80); Nucleated Red Blood Cell # 0.00 Thou/mm3 (0.00-0.00); Nucleated Red Blood Cell % 0 /100 WBC (0); Platelet Count 272 Thou/mm3 (140-440); RDW Standard Deviation 45.7 fL (35.1-43.9); Red Blood Count 4.91 Miln/mm3 (4.50-5.90); White Blood Count 4.5 Thou/mm3 (3.8-10.6)
[2025-06-14 09:14] LABS: Alanine Aminotransferase 12 U/L (10-49); Albumin, Serum 4.1 gm/dL (3.4-4.8); Albumin/Globulin Ratio 1.9 (1.2-2.2); Alkaline Phosphatase 71 U/L (46-116); Anion Gap 12 (7-16); Aspartate Amino Transferase 18 U/L (0-34); BUN/Creatinine Ratio 18 Ratio (12-20); Bilirubin,Total 0.8 mg/dL (0.3-1.2); Blood Urea Nitrogen 33 mg/dL (9-23); Calcium 8.6 mg/dL (8.3-10.6); Calcium (Corrected) 8.6 mg/dL (8.5-10.1); Carbon Dioxide 22.8 mMol/L (20.0-31.0); Cardiac Risk Estimate 4.0 RATIO (4.0-6.7); Chloride 106 mMol/L (98-107); Cholesterol 149 mg/dL (132-200); Creatinine (Component) 1.8 mg/dL (0.6-1.3); Estimated Creatinine Clearance 32.0 mL/min (>60); Globulin 2.2 gm/dL (2.3-3.5); Glucose 94 mg/dL (74-106); HDL Cholesterol 37 mg/dL (40-60); LDL Cholesterol,Calculated 89 mg/dL (0-130); Magnesium 2.4 mg/dL (1.6-2.6); Osmolality,Calculated 288 (275-295); Potassium 4.6 mMol/L (3.4-5.1); Sodium 141 mMol/L (136-145); Total Protein 6.3 gm/dL (5.7-8.2); Triglycerides 114 mg/dL (30-150); eGFR 37 See Note
[2025-06-14] MEDS: HEPARIN SOD INJ 5000 UNIT/ML VIAL SC ×2 (09:23→20:31)
--- NOTE | 2025-06-14 14:14 | ESPR_ITS ---
<Statement entered by Shakeel Amato MD - 06/14/25 18:05> An 80-year-old male patient with past medical history of coronary artery disease, hypertension, colon cancer status post hemicolectomy, came to the ED due to abdominal pain nausea denied any vomiting. Patient was admitted for possible SBO as his abdominal and pelvis CT scan showed multiple fluid distended small bowel loops and also showed possible common bile duct dilatation. His small bowel follow-through x-ray showed possible partial obstruction however contrast was passed to the rectum. And patient denied any right upper quadrant pain, there was no tenderness, and serum bilirubin was within normal limits. Liver ultrasound was limited due to bowel distention. The general surgeon Dr. Ford was consulted he recommended to follow-up with his reheater helper as an outpatient as his symptoms currently resolved without NG tube decompression. Patient reported also previously multiple episodes of diarrhea. However, he was found to have potassium level of 5.6. Moreover patient was found also to have TONO his baseline serum creatinine 1.5 today found to be 2.3. Patient was given IV fluids by the ED physicians and night team. Will reassess tomorrow his kidney functions and will speak to the reheater helper if he has any further recommendations and will possibly discharge. - Patient's plan and care discussed with my attending, Dr. Theron Amato MD Internal Medicine PGY-3 Documentation for date of: 06/14/25 Subjective Subjective Interval history: Overnight admission with complaint of abdominal pain nausea, and admitted for possible SBO as his abdominal and pelvis CT scan showed multiple fluid distended small bowel loops and also showed possible common bile duct dilatation. Small bowel follow-through suggested a possible partial obstruction; however, contrast successfully reached the rectum. The patient denied RUQ pain, and no abdominal tenderness on physical examinatio. T. bilirubin was within normal limits. Liver ultrasound was limited due to bowel distention. Dr. Ford, general surgeon was consulted and recommended outpatient follow-up with the patient?s GI doctor, as his symptoms had resolved without the need for NG tube decompression. The patient also reported a history of multiple episodes of diarrhea. Laboratory evaluation revealed hyperkalemia 5.6 and acute kidney injury, with serum creatinine rising from a baseline of 1.5 to 2.3. The patient received IV fluids from the ED and overnight team. Will continue reassessed kidney function. Potential discharge within 24 to 48-hour if symptoms remain stable. Exam Vital Signs Temp Pulse Resp BP Pulse Ox O2 Del Method 97.9 F 86 18 143/82 H 98 Room Air 06/14/25 12:00 06/14/25 12:00 06/14/25 12:00 06/14/25 12:00 06/14/25 12:00 06/14/25 12:00 Narrative Exam General: Alert, no acute distress.Conversational and non-toxic appearing. Skin: Warm, dry, intact. No rash or ecchymoses. Head: Normocephalic, atraumatic. Eye: Normal conjunctiva, PERRL. Throat: Oral mucosa moist. No obvious lesions in oropharynx. Cardiovascular: Regular rate and rhythm, no murmur, +S1/S2. Respiratory: Lungs are clear to auscultation, respirations unlabored, no crackles, no wheezing. Gastrointestinal: Soft, nontender, non-distended. No guarding or rebound tenderness. Extremities: No edema, no cyanosis, no clubbing. Neuro: Alert and oriented x3.No focal deficits observed. Conversant, moving all extremities. No overt cerebellar signs/incoordination. Psychiatric: Cooperative, appropriate affect Objective Labs 06/19/25 04:55 06/19/25 04:55 Labs: Laboratory Results - last 24 hr 06/13/25 06/13/25 06/14/25 19:24 22:35 02:31 WBC 5.1 RBC 5.47 Hgb 17.0 H Hct 51.9 MCV 95 MCH 31.1 MCHC 32.8 RDW Std Deviation 45.9 H Plt Count 316 D Neut % (Auto) 66 Lymph % (Auto) 11 [place] % (Auto) 21 H Eos % (Auto) 2 Baso % (Auto) 1 Neut # (Auto) 3.4 Lymph # (Auto) 0.6 L [place] # (Auto) 1.1 H Eos # (Auto) 0.1 Baso # (Auto) 0.0 Immature Gran # (Auto) 0.01 H Absolute Nucleated RBC 0.00 Immature Gran % 0 Nucleated RBC % 0 Sodium 136 139 Potassium 5.6 H 4.3 D Chloride 101 106 Carbon Dioxide 22.6 17.0 L Anion Gap 12 16 BUN 35 H 31 H Creatinine 2.3 H 2.0 H Estim Creat Clear Calc Not Performed. Not Performed. eGFR 28 L 33 L BUN/Creatinine Ratio 15 16 Glucose 120 H 101 Calculated Osmolality 280 284 Calcium 10.0 9.0 Corrected Calcium 10.0 Magnesium Total Bilirubin 1.1 AST 24 ALT 15 Alkaline Phosphatase 85 Total Protein 7.5 Albumin 4.4 Globulin 3.1 Albumin/Globulin Ratio 1.4 Triglycerides Cholesterol LDL Cholesterol, Calc HDL Cholesterol Cholesterol/HDL Ratio Lipase 51 Ur Collection Type Clean Catch Urine Color Yellow Urine Clarity Clear Urine pH 5.5 Ur Specific [place] 1.029 Urine Protein 1+ A Urine Glucose (UA) Negative Urine Ketones Trace Urine Blood 2+ A Urine Nitrite Negative Urine Bilirubin 1+ A Urine Urobilinogen (Auto) 2.0 Ur Leukocyte Esterase Negative Urine RBC 122 H Urine WBC 3 Ur Squamous Epith Cells 1 Urine Bacteria Rare Hyaline Casts 1 06/14/25 08:05 WBC 4.5 RBC 4.91 Hgb 15.3 Hct 46.6 MCV 95 MCH 31.2 MCHC 32.8 RDW Std Deviation 45.7 H Plt Count 272 D Neut % (Auto) 63 Lymph % (Auto) 11 [place] % (Auto) 21 H Eos % (Auto) 4 Baso % (Auto) 0 Neut # (Auto) 2.9 Lymph # (Auto) 0.5 L [place] # (Auto) 1.0 H Eos # (Auto) 0.2 Baso # (Auto) 0.0 Immature Gran # (Auto) 0.01 H Absolute Nucleated RBC 0.00 Immature Gran % 0 Nucleated RBC % 0 Sodium 141 Potassium 4.6 Chloride 106 Carbon Dioxide 22.8 Anion Gap 12 BUN 33 H Creatinine 1.8 H Estim Creat Clear Calc 32.0 L eGFR 37 L BUN/Creatinine Ratio 18 Glucose 94 Calculated Osmolality 288 Calcium 8.6 Corrected Calcium 8.6 Magnesium 2.4 Total Bilirubin 0.8 AST 18 ALT 12 Alkaline Phosphatase 71 Total Protein 6.3 Albumin 4.1 Globulin 2.2 L Albumin/Globulin Ratio 1.9 Triglycerides 114 Cholesterol 149 LDL Cholesterol, Calc 89 HDL Cholesterol 37 L Cholesterol/HDL Ratio 4.0 Lipase Ur Collection Type Urine Color Urine Clarity Urine pH Ur Specific [place] Urine Protein Urine Glucose (UA) Urine Ketones Urine Blood Urine Nitrite Urine Bilirubin Urine Urobilinogen (Auto) Ur Leukocyte Esterase Urine RBC Urine WBC Ur Squamous Epith Cells Urine Bacteria Hyaline Casts Quality Measures Quality Measures none Advance care planning discussed with:: patient and other Assessment & Plan Assessment Current Active Medications: Generic Name Dose Route Start Last Admin Trade Name Freq PRN Reason Stop Dose Admin Heparin Sodium (Porcine) 5,000 unit 06/14/25 09:00 06/14/25 09:23 Heparin Sod Inj 5000 Unit/Ml Vial SC 06/28/25 08:59 5,000 unit Q12HR ODALYS Administration Acetaminophen 1,000 mg in 100 mls @ 250 mls/hr 06/14/25 03:38 06/14/25 05:19 Ofirmev Inj IV 06/14/25 18:23 250 mls/hr Q6HR PRN Administration pain 1-10 Lactated Ringer's 1,000 mls @ 75 mls/hr 06/14/25 07:52 Lactated Ringers IV 07/14/25 07:51 .[id number] ODALYS Ondansetron HCl 4 mg 06/14/25 02:36 06/14/25 11:48 Ondansetron Inj 2 Mg/Ml Inj 2 Ml IVP 07/14/25 02:35 4 mg Q6H PRN Administration NAUSEA OR VOMITING Protocol Plan Mr. Tidwell is a 80-year-old male with past medical history significant for hypertension, CAD (no history of stents ), history of multiple MIs, colon cancer status post surgical resection approximately 7 years ago presented to the ED complaining of abdominal pain and nausea. Patient is admitted for management of SBO. #Partial small bowel obstruction, vs. Small Bowel ileus DDx enteritis versus adhesions versus postoperative ileus - Patient is a poor historian however in initial presentation per ED patient was complaining of abdominal pain with nausea patient denies any vomiting. Small bowel follow-through suggested a possible partial obstruction; however, contrast successfully reached the rectum. The patient denied RUQ pain, and no abdominal tenderness on physical examination. T. bilirubin was within normal limits. Liver ultrasound was limited due to bowel distention. Given the patient reported episode of diarrhea and chills prior to the admission patient possibly had enteritis or partial SBO due to prior history of colon resection. -CT of abdomen: Multiple fluid distended small bowel loops, differential would include ileus, enteritis, early small bowel obstruction - Small bowel series ordered by ED - NG tube was not placed because small bowel series was started prior to placement of NG tube Plan: - General Surgery consulted, Dr. Ford recommends outpatient follow-up with GI - Zofran for nausea as needed #TONO on CKD - On admission creatinine 2.3 baseline creatinine is 1.5 - Patient denies any prior history of known kidney disease and does not follow any acid regenerator - 1 L bolus fluid given Plan: - Avoid nephrotoxins - Monitor renal panel - Renally dosed medications - Held Lasix in setting of TONO #CAD #History of [place] #Primary hypertension - Patient has history of multiple MIs and coronary artery disease but denies any stents - Patient follows Dr. Araiza outpatient regularly -Patient denies chest pain, pressure palpitation, or shortness of breath Plan: - Plavix 75 mg p.o. - Atorvastatin 10 mg at bedtime #Hx of Colon Cancer s/p resection - Patient has history of colon cancer approximately 7 years ago which was surgically resected and did not undergo any chemotherapy or radiation - Patient follows up at the cancer center regularly every 6 months #Hyperkalemia (resolve) - On admission potassium is 5.6, patient is given 2 L of fluid by the ED Hospital management: Lines: peripheral IV Diet: CLD DVT prophylaxis: Hep sbc Disposition: Medsurg for early SBO? CODE STATUS: Full code Patient assessed under supervision of attending physician and senior resident Dr. Amato PGY-3 Barbara Weiss MD PGY-1, Internal Medicine Please note: this document was transcribed using voice recognition technology; minor inaccuracies may be present. Attending Provider Attestation/Addendum I have examined the patient, reviewed labs and imaging findings, discussed the case with the resident(s), and reviewed entered orders. I agree with the plan of care as outlined in this note. Dr. Theron MD
--- NOTE | 2025-06-14 16:08 | PC.SS ---
rounding note: Abdominal pain. Pending general surgery recs
--- NOTE | 2025-06-14 16:24 | PD.SURCONS ---
HPI Consult details History of present illness: 80M with HTN, CAD, colon CA s/p R hemicolectomy in past, last colonoscopy in 2021 admitted 06/13 with constipation and nausea, workup indicative of SBO. Pt did not have NG placed as he was not vomiting and underwent small bowel series which showed contrast in colon. He denies any history of similar symptoms PMH: HTN, CAD, colon CA PSHx: R hemicolectomy, umbilical hernia repair Meds: includes plavix Allergies: NKDA Review of Systems Review of Systems ROS Unobtainable: All systems reviewed & no additional complaints except as documented Meds Home Medications and Allergies Home Medications ?Medication ?Instructions ?Recorded ?Confirmed ?Type atorvastatin 10 mg tablet (Lipitor) 10 mg PO HS #0 tabs 08/03/15 06/14/25 History carvedilol 6.25 mg tablet (Coreg) 6.25 mg PO BID #0 tabs 08/03/15 06/14/25 History furosemide 40 mg tablet (Lasix) 40 mg PO QAM #0 tabs 08/03/15 06/14/25 History lisinopril 2.5 mg tablet 2.5 mg PO QDAY #0 tabs 08/03/15 06/14/25 History clopidogrel 75 mg tablet 75 mg PO QDAY 06/12/18 06/14/25 History famotidine 40 mg tablet 20 mg PO BID 09/29/20 06/14/25 History nitroglycerin 0.4 mg sublingual 0.4 mg sublingual Q5M PRN chest 07/23/23 06/14/25 History tablet pain Allergies Allergy/AdvReac Type Severity Reaction Status Date / Time No Known Allergies Allergy Verified 06/13/25 17:52 Exam Vital Signs Temp Pulse Resp BP Pulse Ox O2 Del Method 97.7 F 90 17 145/79 H 97 Room Air 06/14/25 16:00 06/14/25 16:00 06/14/25 16:00 06/14/25 16:00 06/14/25 16:00 06/14/25 16:00 Constitutional Constitutional: no acute distress Routine Respiratory Exam Respiratory: Present no resp distress Routine Abdominal Exam Abdominal: Present soft; Absent tenderness or distended Results Results: Laboratory Laboratory results: results reviewed Results: Imaging Abdominal x-ray: report reviewed and image reviewed CT scan - abdomen: report reviewed and image reviewed Assessment & Plan Plan 80M with HTN, CAD, colon CA s/p R hemicolectomy in past, last colonoscopy in 2021 admitted 06/13 with constipation and nausea, workup indicative of SBO which resolved without NG placement. I recommended pt follow up with his GI as an outpt for surveillance colonoscopy CLD, advance as tolerated
[2025-06-14] MEDS: RINGERS LACTATED 1000 ML 1,000 ML 75 ML IV (18:35)
[2025-06-14] MEDS: ATORVASTATIN CALCIUM 10 MG TABLET PO (20:31)
[2025-06-15] VITALS (7 sets, daily range): BP systolic 132–158; BP diastolic 75–84; PULSE 80–102; RESP 17–95; TEMP 36.2–37.1; O2SAT 94–99
[2025-06-15 06:18] LABS: Basophils # (Auto) 0.0 Thou/mm3 (0.0-0.2); Basophils % (Auto) 1 % (0-2.5); Eosinophils # (Auto) 0.2 Thou/mm3 (0.0-0.5); Eosinophils % (Auto) 6 % (0-10); Hematocrit 43.5 % (41.0-53.0); Hemoglobin 14.3 g/dL (13.5-16.0); Immature Granulocytes Auto 0.01 Thou/mm3 (0.00-0.00); Lymphocytes # (Auto) 0.4 Thou/mm3 (1.0-4.8); Lymphocytes % (Auto) 13 % (10-50); Mean Corpuscular HGB Conc 32.9 g/dl (31.0-37.0); Mean Corpuscular Hemoglobin 31.2 pg (25.0-35.0); Mean Corpuscular Volume 95 fL (80-100); Monocytes # (Auto) 0.8 Thou/mm3 (0.0-0.8); Monocytes % (Auto) 23 % (0-12); Neutrophils # (Auto) 1.9 Thou/mm3 (1.8-7.7); Neutrophils % (Auto) 57 % (37-80); Nucleated Red Blood Cell # 0.00 Thou/mm3 (0.00-0.00); Nucleated Red Blood Cell % 0 /100 WBC (0); Platelet Count 255 Thou/mm3 (140-440); RDW Standard Deviation 45.2 fL (35.1-43.9); Red Blood Count 4.58 Miln/mm3 (4.50-5.90); White Blood Count 3.3 Thou/mm3 (3.8-10.6)
[2025-06-15 06:43] LABS: Alanine Aminotransferase 10 U/L (10-49); Albumin, Serum 3.5 gm/dL (3.4-4.8); Albumin/Globulin Ratio 1.5 (1.2-2.2); Alkaline Phosphatase 67 U/L (46-116); Anion Gap 11 (7-16); Aspartate Amino Transferase 17 U/L (0-34); BUN/Creatinine Ratio 18 Ratio (12-20); Bilirubin,Total 0.6 mg/dL (0.3-1.2); Blood Urea Nitrogen 23 mg/dL (9-23); Calcium 8.4 mg/dL (8.3-10.6); Calcium (Corrected) 8.8 mg/dL (8.5-10.1); Carbon Dioxide 20.7 mMol/L (20.0-31.0); Chloride 106 mMol/L (98-107); Creatinine (Component) 1.3 mg/dL (0.6-1.3); Estimated Creatinine Clearance 44.3 mL/min (>60); Globulin 2.3 gm/dL (2.3-3.5); Glucose 73 mg/dL (74-106); Magnesium 2.2 mg/dL (1.6-2.6); Osmolality,Calculated 278 (275-295); Potassium 4.3 mMol/L (3.4-5.1); Sodium 138 mMol/L (136-145); Total Protein 5.8 gm/dL (5.7-8.2); eGFR 55 See Note
[2025-06-15] MEDS: CLOPIDOGREL BISULFATE 75 MG TABLET PO (09:22)
[2025-06-15] MEDS: HEPARIN SOD INJ 5000 UNIT/ML VIAL SC ×2 (09:23→21:19)
[2025-06-15] MEDS: RINGERS LACTATED 1000 ML 1,000 ML 75 ML IV ×2 (09:30→21:20)
--- NOTE | 2025-06-15 12:18 | PC.SS ---
Patient is alert/oriented. Patient resides alone but on the same property as his daughter, García. Daughter provided a brief history of patient. Patient is independent with ADL's. No DME. Patient was admitted for sbo. Discharge plan is to return home. Daughter assists with transportation as needed. PCP: Dr. Alfonso Gandhi. Last appt. was last week. Pharmacy: [facility]. alt medical decision maker: daughterGarcía, Poss d/c home today. No d/c needs.
[2025-06-15] MEDS: ONDANSETRON INJ 2 MG/ML INJ 2 ML 4 MG IVP (14:34)
[2025-06-15] MEDS: FAMOTIDINE INJ 10 MG/ML VIAL 2 ML 40 MG IVP (14:35)
--- NOTE | 2025-06-15 15:43 | XR_ITS ---
Examination: Abdomen AP single view Technique: AP portable supine abdomen, single view Exam date and time: June 15, 2025, 1556 hours INDICATIONS: Left-sided abdominal pain today COMPARISON: August 15, 2024 FINDINGS: Multiple air distended small bowel loops, however contrast is present in the colon No free air IMPRESSION: Significant partial small bowel obstruction
--- NOTE | 2025-06-15 15:44 | ESPR_ITS ---
<Statement entered by Shakeel Amato MD - 06/16/25 18:18> Patient was seen and examined at bedside. Agree with assessment and plan in this note. - Patient's plan and care discussed with my attending, Dr. Fabiano Amato MD Internal Medicine PGY-3 Documentation for date of: 06/15/25 Subjective Subjective Interval history: No acute events occurred overnight. The patient reports nausea and sharp, intermittent abdominal pain rated 6/10. Pain management was initiated with acetaminophen and [place]. A KUB was ordered and will be followed up. Due to worsening abdominal pain and bloating, simethicone 80 mg PO three times daily as needed was started, and Gastroenterology was consulted. Vital signs remain stable, laboratory studies show improvement in acute kidney injury, and the patient is having regular bowel movements. Will follow up on GI recommendations and KUB results. Exam Vital Signs Temp Pulse Resp BP Pulse Ox O2 Del Method 98.4 F 80 18 158/84 H 99 Room Air 06/15/25 12:00 06/15/25 12:00 06/15/25 12:00 06/15/25 12:00 06/15/25 12:00 06/15/25 12:00 Narrative Exam General: Alert, no acute distress.Conversational and non-toxic appearing. Skin: Warm, dry, intact. No rash or ecchymoses. Head: Normocephalic, atraumatic. Eye: Normal conjunctiva, PERRL. Throat: Oral mucosa moist. No obvious lesions in oropharynx. Cardiovascular: Regular rate and rhythm, no murmur, +S1/S2. Respiratory: Lungs are clear to auscultation, respirations unlabored, no crackles, no wheezing. Gastrointestinal: Soft, mildly tender lower quadrant bilaterally, non-distended. No guarding or rebound tenderness. Extremities: No edema, no cyanosis, no clubbing. Neuro: Alert and oriented x3.No focal deficits observed. Conversant, moving all extremities. No overt cerebellar signs/incoordination. Psychiatric: Cooperative, appropriate affect Objective Labs 06/19/25 04:55 06/19/25 04:55 Labs: Laboratory Results - last 24 hr 06/15/25 04:47 WBC 3.3 L RBC 4.58 Hgb 14.3 Hct 43.5 MCV 95 MCH 31.2 MCHC 32.9 RDW Std Deviation 45.2 H Plt Count 255 Neut % (Auto) 57 Lymph % (Auto) 13 [place] % (Auto) 23 H Eos % (Auto) 6 Baso % (Auto) 1 Neut # (Auto) 1.9 Lymph # (Auto) 0.4 L [place] # (Auto) 0.8 Eos # (Auto) 0.2 Baso # (Auto) 0.0 Immature Gran # (Auto) 0.01 H Absolute Nucleated RBC 0.00 Immature Gran % 0 Nucleated RBC % 0 Sodium 138 Potassium 4.3 Chloride 106 Carbon Dioxide 20.7 Anion Gap 11 BUN 23 Creatinine 1.3 D Estim Creat Clear Calc 44.3 L eGFR 55 L BUN/Creatinine Ratio 18 Glucose 73 L Calculated Osmolality 278 Calcium 8.4 Corrected Calcium 8.8 Magnesium 2.2 Total Bilirubin 0.6 AST 17 ALT 10 Alkaline Phosphatase 67 Total Protein 5.8 Albumin 3.5 D Globulin 2.3 Albumin/Globulin Ratio 1.5 Quality Measures Quality Measures none Advance care planning discussed with:: patient Assessment & Plan Assessment Current Active Medications: Generic Name Dose Route Start Last Admin Trade Name Freq PRN Reason Stop Dose Admin Acetaminophen 650 mg 06/15/25 15:43 Acetaminophen 325 Mg Tablet PO 07/15/25 15:38 Q4HR PRN pain 1-3 Hydrocodone Bitart/Acetaminophen 1 tab 06/15/25 15:39 Hydrocodone/Apap 5/325 Tablet PO 06/20/25 15:38 Q6HR PRN pain 4-10 Atorvastatin Calcium 10 mg 06/14/25 21:00 06/14/25 20:31 Atorvastatin Calcium 10 Mg Tablet PO 07/14/25 20:59 10 mg HS ODALYS Administration Clopidogrel Bisulfate 75 mg 06/15/25 09:00 06/15/25 09:22 Clopidogrel Bisulfate 75 Mg Tablet PO 07/15/25 08:59 75 mg QDAY ODALYS Administration Heparin Sodium (Porcine) 5,000 unit 06/14/25 09:00 06/15/25 09:23 Heparin Sod Inj 5000 Unit/Ml Vial SC 06/28/25 08:59 5,000 unit Q12HR ODALYS Administration Lactated Ringer's 1,000 mls @ 75 mls/hr 06/14/25 07:52 06/15/25 09:30 Lactated Ringers IV 07/14/25 07:51 75 mls/hr .[id number] ODALYS Administration Ondansetron HCl 4 mg 06/14/25 02:36 06/15/25 14:34 Ondansetron Inj 2 Mg/Ml Inj 2 Ml IVP 07/14/25 02:35 4 mg Q6H PRN Administration NAUSEA OR VOMITING Protocol Plan Mr. Tidwell is a 80-year-old male with past medical history significant for hypertension, CAD (no history of stents ), history of multiple MIs, colon cancer status post surgical resection approximately 7 years ago presented to the ED complaining of abdominal pain and nausea. Patient is admitted for management of SBO. #Partial small bowel obstruction, vs. Small Bowel ileus DDx enteritis versus adhesions versus postoperative ileus - Patient is a poor historian however in initial presentation per ED patient was complaining of abdominal pain with nausea patient denies any vomiting. Small bowel follow-through suggested a possible partial obstruction; however, contrast successfully reached the rectum. The patient denied RUQ pain, and no abdominal tenderness on physical examination. T. bilirubin was within normal limits. Liver ultrasound was limited due to bowel distention. Given the patient reported episode of diarrhea and chills prior to the admission patient possibly had enteritis or partial SBO due to prior history of colon resection. -CT of abdomen: Multiple fluid distended small bowel loops, differential would include ileus, enteritis, early small bowel obstruction - Small bowel series ordered by ED - NG tube was not placed because small bowel series was started prior to placement of NG tube 06/15-due to worsening worsening abdominal pain and bloatedness ,GI was consulted and KUB was ordered Plan: - General Surgery consulted, Dr. Ford recommends outpatient follow-up with GI - Zofran for nausea as needed - GI consulted, recommendation appreciated - Follow-up with KUB - Simethicone 80 mg p.o. 4 times daily #TONO on CKD (improving) - On admission creatinine 2.3 baseline creatinine is 1.5 - Patient denies any prior history of known kidney disease and does not follow any psychological assistant - 1 L bolus fluid given Plan: - Avoid nephrotoxins - Monitor renal panel - Renally dosed medications - Held Lasix in setting of TONO #CAD #History of CT #Primary hypertension - Patient has history of multiple MIs and coronary artery disease but denies any stents - Patient follows Dr. Araiza outpatient regularly -Patient denies chest pain, pressure palpitation, or shortness of breath Plan: - Plavix 75 mg p.o. - Atorvastatin 10 mg at bedtime #Hx of Colon Cancer s/p resection - Patient has history of colon cancer approximately 7 years ago which was surgically resected and did not undergo any chemotherapy or radiation - Patient follows up at the cancer center regularly every 6 months #Hyperkalemia (resolve) - On admission potassium is 5.6, patient is given 2 L of fluid by the ED Hospital management: Lines: peripheral IV Diet: NPO DVT prophylaxis: Hep sbc Disposition: Medsurg for early SBO? CODE STATUS: Full code Patient assessed under supervision of attending physician and senior resident Dr. Amato PGY-3 Barbara Weiss MD PGY-1, Internal Medicine Please note: this document was transcribed using voice recognition technology; minor inaccuracies may be present Attending Provider Attestation/Addendum Khadijah Esteban, , attest that I was physically present for the delgado portions of the service and evaluated the patient with the resident and I reviewed and discussed the case with the resident and agree with the resident's findings and plans of care as documented above Patient seen and evalutaed this AM. He states he is feeling improved. Patient had several bm?s yesterday after gastrograffin small bowel series, last image shows partial SBO. Abdomen is soft and nontender to palpation. Patient is tolerating clear liquid diet. Will advance as tolerated. Delayed signature due to inability to log onto [employer] from remote access. Attestation was written within 24h of seeing patient.
[2025-06-15] MEDS: SIMETHICONE 80 MG CHEW PO (17:07)
--- NOTE | 2025-06-15 18:06 | PD.IMCONS ---
HPI Data of Consult Requesting Physician: Khadijah Kim DO Primary Care Provider: Juan Gandhi MD Consult Narrative Reason for consult: Nausea abnormal CTAP and SBFT History of present illness: 80 years old male evaluated at the request of the internal medicine team for abnormal CT scan of the abdomen pelvis Patient has persistent nausea CT scan of the abdomen pelvis without contrast showed distended gallbladder ileus pattern involving small bowel obstruction Common bile duct 9 mm Small bowel follow-through in progress shows small bowel obstruction. But not complete Patient does have a history of colon carcinoma status post right hemicolectomy Hypertension and underlying coronary artery disease Patient having bowel movements passing gas and tolerating liquid diet cc:: cc: Khadijah Kim DO Review of Systems Review of Systems Systems Reviewed: All systems reviewed, normal except as documented Past Medical History Surgical History OTHER SURGICAL HX: As in the history of present illness Meds Home Medications and Allergies Home Medications ?Medication ?Instructions ?Recorded ?Confirmed ?Type atorvastatin 10 mg tablet (Lipitor) 10 mg PO HS #0 tabs 08/03/15 06/14/25 History carvedilol 6.25 mg tablet (Coreg) 6.25 mg PO BID #0 tabs 08/03/15 06/14/25 History furosemide 40 mg tablet (Lasix) 40 mg PO QAM #0 tabs 08/03/15 06/14/25 History lisinopril 2.5 mg tablet 2.5 mg PO QDAY #0 tabs 08/03/15 06/14/25 History Held on 06/15/25. Instructions: Resume on 06/22/25. Resume it after a week since your kidneys are improving. You developed TONO during hospital stay clopidogrel 75 mg tablet 75 mg PO QDAY 06/12/18 06/14/25 History famotidine 40 mg tablet 20 mg PO BID 09/29/20 06/14/25 History nitroglycerin 0.4 mg sublingual 0.4 mg sublingual Q5M PRN chest 07/23/23 06/14/25 History tablet pain Allergies Allergy/AdvReac Type Severity Reaction Status Date / Time No Known Allergies Allergy Verified 06/13/25 17:52 Exam Vital Signs Temp Pulse Resp BP Pulse Ox O2 Del Method 98.3 F 84 18 148/80 H 96 Room Air 06/15/25 16:00 06/15/25 16:00 06/15/25 16:00 06/15/25 16:00 06/15/25 16:00 06/15/25 16:00 Constitutional Comments: Alert oriented Routine Respiratory Exam Comments: Normal to auscultation Routine Abdominal Exam Comments: Hypoactive bowel sounds Results Labs 06/15/25 04:47 06/15/25 04:47 Labs: Short CBC 06/15/25 Range/Units 04:47 WBC 3.3 L (3.8-10.6) Thou/mm3 Hgb 14.3 (13.5-16.0) g/dL Hct 43.5 (41.0-53.0) % Plt Count 255 (140-440) Thou/mm3 BMP 06/15/25 04:47 Sodium 138 Potassium 4.3 Chloride 106 Carbon Dioxide 20.7 BUN 23 Creatinine 1.3 D Glucose 73 L Calcium 8.4 Liver Function 06/15/25 Range/Units 04:47 Total Bilirubin 0.6 (0.3-1.2) mg/dL AST 17 (0-34) U/L ALT 10 (10-49) U/L Alkaline Phosphatase 67 (46-116) U/L Albumin 3.5 D (3.4-4.8) gm/dL Assessment and Plan Additional Assessment & Plan Additional Plan: # Small bowel obstruction pattern most likely due to abdominal lesions due to previous colonic surgery Plan Continue conservative management Once patient's small bowel obstruction has resolved recommend fibrotic colonoscopy prior to discharge looking to the ileocolonic anastomosis to rule out any stricture CEA level Will follow the patient Clear liquid diet GoLytely prep Consent obtained for fiberoptic colonoscopy possible biopsy possible therapeutic intervention scheduled for tomorrow Thank you for the opportunity to participate in care of this patient
[2025-06-15 20:36] LABS: Carcinoembryonic Antigen 2.2 ng/mL (0.0-5.0)
[2025-06-15] MEDS: ATORVASTATIN CALCIUM 10 MG TABLET PO (21:18)
[2025-06-15] MEDS: NA SU/NAHCO3/KC/PEG (Golytely) 4,000 ML BTL 4000 ML PO (21:19)
[2025-06-16] VITALS (8 sets, daily range): BP systolic 133–162; BP diastolic 75–94; PULSE 74–93; RESP 16–95; TEMP 36.2–36.8; O2SAT 94–96
[2025-06-16 05:20] LABS: Basophils # (Auto) 0.0 Thou/mm3 (0.0-0.2); Basophils % (Auto) 1 % (0-2.5); Eosinophils # (Auto) 0.2 Thou/mm3 (0.0-0.5); Eosinophils % (Auto) 5 % (0-10); Hematocrit 44.0 % (41.0-53.0); Hemoglobin 14.8 g/dL (13.5-16.0); Immature Granulocytes Auto 0.03 Thou/mm3 (0.00-0.00); Lymphocytes # (Auto) 0.5 Thou/mm3 (1.0-4.8); Lymphocytes % (Auto) 13 % (10-50); Mean Corpuscular HGB Conc 33.6 g/dl (31.0-37.0); Mean Corpuscular Hemoglobin 31.4 pg (25.0-35.0); Mean Corpuscular Volume 93 fL (80-100); Monocytes # (Auto) 0.6 Thou/mm3 (0.0-0.8); Monocytes % (Auto) 18 % (0-12); Neutrophils # (Auto) 2.3 Thou/mm3 (1.8-7.7); Neutrophils % (Auto) 64 % (37-80); Nucleated Red Blood Cell # 0.00 Thou/mm3 (0.00-0.00); Nucleated Red Blood Cell % 0 /100 WBC (0); Platelet Count 227 Thou/mm3 (140-440); RDW Standard Deviation 44.1 fL (35.1-43.9); Red Blood Count 4.72 Miln/mm3 (4.50-5.90); White Blood Count 3.6 Thou/mm3 (3.8-10.6)
[2025-06-16 08:02] LABS: Alanine Aminotransferase 10 U/L (10-49); Albumin, Serum 3.9 gm/dL (3.4-4.8); Albumin/Globulin Ratio 1.7 (1.2-2.2); Alkaline Phosphatase 67 U/L (46-116); Anion Gap 9 (7-16); Aspartate Amino Transferase 19 U/L (0-34); BUN/Creatinine Ratio 13 Ratio (12-20); Bilirubin,Total 0.6 mg/dL (0.3-1.2); Blood Urea Nitrogen 15 mg/dL (9-23); Calcium 8.7 mg/dL (8.3-10.6); Calcium (Corrected) 8.8 mg/dL (8.5-10.1); Carbon Dioxide 27.3 mMol/L (20.0-31.0); Chloride 102 mMol/L (98-107); Creatinine (Component) 1.2 mg/dL (0.6-1.3); Estimated Creatinine Clearance 48.0 mL/min (>60); Globulin 2.3 gm/dL (2.3-3.5); Glucose 91 mg/dL (74-106); Magnesium 2.0 mg/dL (1.6-2.6); Osmolality,Calculated 276 (275-295); Potassium 4.2 mMol/L (3.4-5.1); Sodium 138 mMol/L (136-145); Total Protein 6.2 gm/dL (5.7-8.2); eGFR > 60 See Note
[2025-06-16 09:33] LABS: Carcinoembryonic Antigen 2.4 ng/mL (0.0-5.0)
[2025-06-16] MEDS: CLOPIDOGREL BISULFATE 75 MG TABLET PO (10:22)
--- NOTE | 2025-06-16 11:50 | ESPR_ITS ---
<Statement entered by Shakeel Amato MD - 06/17/25 17:59> Patient was seen and examined at bedside. Agree with assessment and plan in this note. - Patient's plan and care discussed with my attending, Dr. Fabiano Amato MD Internal Medicine PGY- Documentation for date of: 06/16/25 Subjective Subjective Interval history: Overnight patient reports abdominal pain associated with bloating. Patient was seen lying in bed comfortable. KUB was ordered and showed partial small bowel obstruction. Gastroenterology was consulted for worsening abdominal pain and recommend colonoscopy to rule out stricture or lesion from prior hemicolectomy that may be causing partial SBO. Patient was started on GoLytely prep, pending colonoscopy. Vitals are stable. Labs were reviewed and noted unremarkable. Tumor marker CEA was 2.4. Exam Vital Signs Temp Pulse Resp BP Pulse Ox O2 Del Method 98.2 F 76 16 153/84 H 95 Room Air 06/16/25 08:09 06/16/25 08:09 06/16/25 08:09 06/16/25 08:09 06/16/25 08:09 06/16/25 08:09 Narrative Exam General: Alert, no acute distress.Conversational and non-toxic appearing. Skin: Warm, dry, intact. No rash or ecchymoses. Head: Normocephalic, atraumatic. Eye: Normal conjunctiva, PERRL. Throat: Oral mucosa moist. No obvious lesions in oropharynx. Cardiovascular: Regular rate and rhythm, no murmur, +S1/S2. Respiratory: Lungs are clear to auscultation, respirations unlabored, no crackles, no wheezing. Gastrointestinal: Soft, nontender, non-distended. No guarding or rebound tenderness. Extremities: No edema, no cyanosis, no clubbing. Neuro: Alert and oriented x3.No focal deficits observed. Conversant, moving all extremities. No overt cerebellar signs/incoordination. Psychiatric: Cooperative, appropriate affect Objective Labs 06/18/25 04:25 06/18/25 04:25 Labs: Laboratory Results - last 24 hr 06/15/25 06/16/25 06/16/25 04:47 04:30 07:12 WBC 3.6 L RBC 4.72 Hgb 14.8 Hct 44.0 MCV 93 MCH 31.4 MCHC 33.6 RDW Std Deviation 44.1 H Plt Count 227 Neut % (Auto) 64 Lymph % (Auto) 13 [place] % (Auto) 18 H Eos % (Auto) 5 Baso % (Auto) 1 Neut # (Auto) 2.3 Lymph # (Auto) 0.5 L [place] # (Auto) 0.6 Eos # (Auto) 0.2 Baso # (Auto) 0.0 Immature Gran # (Auto) 0.03 H Absolute Nucleated RBC 0.00 Immature Gran % 1 H Nucleated RBC % 0 Sodium 138 Potassium 4.2 Chloride 102 Carbon Dioxide 27.3 Anion Gap 9 BUN 15 Creatinine 1.2 Estim Creat Clear Calc 48.0 L eGFR > 60 BUN/Creatinine Ratio 13 Glucose 91 Calculated Osmolality 276 Calcium 8.7 Corrected Calcium 8.8 Magnesium 2.0 Total Bilirubin 0.6 AST 19 ALT 10 Alkaline Phosphatase 67 Total Protein 6.2 Albumin 3.9 Globulin 2.3 Albumin/Globulin Ratio 1.7 Carcinoembryonic Ag 2.2 06/16/25 07:15 WBC RBC Hgb Hct MCV MCH MCHC RDW Std Deviation Plt Count Neut % (Auto) Lymph % (Auto) [place] % (Auto) Eos % (Auto) Baso % (Auto) Neut # (Auto) Lymph # (Auto) [place] # (Auto) Eos # (Auto) Baso # (Auto) Immature Gran # (Auto) Absolute Nucleated RBC Immature Gran % Nucleated RBC % Sodium Potassium Chloride Carbon Dioxide Anion Gap BUN Creatinine Estim Creat Clear Calc eGFR BUN/Creatinine Ratio Glucose Calculated Osmolality Calcium Corrected Calcium Magnesium Total Bilirubin AST ALT Alkaline Phosphatase Total Protein Albumin Globulin Albumin/Globulin Ratio Carcinoembryonic Ag 2.4 Quality Measures Quality Measures none Advance care planning discussed with:: patient Assessment & Plan Assessment Current Active Medications: Generic Name Dose Route Start Last Admin Trade Name Freq PRN Reason Stop Dose Admin Acetaminophen 650 mg 06/15/25 15:43 Acetaminophen 325 Mg Tablet PO 07/15/25 15:38 Q4HR PRN pain 1-3 Hydrocodone Bitart/Acetaminophen 1 tab 06/15/25 15:39 Hydrocodone/Apap 5/325 Tablet PO 06/20/25 15:38 Q6HR PRN pain 4-10 Atorvastatin Calcium 10 mg 06/14/25 21:00 06/15/25 21:18 Atorvastatin Calcium 10 Mg Tablet PO 07/14/25 20:59 10 mg HS ODALYS Administration Clopidogrel Bisulfate 75 mg 06/15/25 09:00 06/16/25 10:22 Clopidogrel Bisulfate 75 Mg Tablet PO 07/15/25 08:59 75 mg QDAY ODALYS Administration Heparin Sodium (Porcine) 5,000 unit 06/14/25 09:00 06/16/25 10:23 Heparin Sod Inj 5000 Unit/Ml Vial SC 06/28/25 08:59 Not Given Q12HR ODALYS Lactated Ringer's 1,000 mls @ 75 mls/hr 06/14/25 07:52 06/16/25 01:08 Lactated Ringers IV 07/14/25 07:51 Not Given .[id number] ODALYS Ondansetron HCl 4 mg 06/14/25 02:36 06/15/25 14:34 Ondansetron Inj 2 Mg/Ml Inj 2 Ml IVP 07/14/25 02:35 4 mg Q6H PRN Administration NAUSEA OR VOMITING Protocol Simethicone 80 mg 06/15/25 21:00 Simethicone 80 Mg Chew PO 07/15/25 20:59 QID PRN GAS Plan Mr. Tidwell is a 80-year-old male with past medical history significant for hypertension, CAD (no history of stents ), history of multiple MIs, colon cancer status post surgical resection approximately 7 years ago presented to the ED complaining of abdominal pain and nausea. Patient is admitted for management of SBO. #Partial small bowel obstruction, vs. Small Bowel ileus #Hx of Colon carcinoma s/p right hemicolectomy DDx enteritis versus adhesions versus postoperative ileus vs strictures - Patient is a poor historian however in initial presentation per ED patient was complaining of abdominal pain with nausea patient denies any vomiting. Small bowel follow-through suggested a possible partial obstruction; however, contrast successfully reached the rectum. The patient denied RUQ pain, and no abdominal tenderness on physical examination. T. bilirubin was within normal limits. Liver ultrasound was limited due to bowel distention. Given the patient reported episode of diarrhea and chills prior to the admission patient possibly had enteritis or partial SBO due to prior history of colon resection. - Patient has hx of colon cancer approximately 7 years ago which was surgically resected and did not undergo any chemotherapy or radiation. Follows up at the cancer center regularly every 6 months -CT of abdomen: Multiple fluid distended small bowel loops, differential would include ileus, enteritis, early small bowel obstruction - Small bowel series ordered by ED. NG tube was not placed because small bowel series was started prior to placement of NG tube 06/15-due to worsening worsening abdominal pain and bloatedness, GI was consulted and KUB was ordered and showed significant partial small bowel obstruction Plan: - General Surgery consulted, Dr. Ford recommends outpatient follow-up with GI - Zofran for nausea as needed - GI consulted, recommendation appreciated- SBO pattern most likely due to abdominal lesions from previous colonic surgery. Colonoscopy to rule out any stricture, started golyetely. CEA ordered - Simethicone 80 mg p.o. 4 times daily for gas #TONO on CKD (improving) - On admission creatinine 2.3 baseline creatinine is 1.5 - Patient denies any prior history of known kidney disease and does not follow any galvanizer - 1 L bolus fluid given Plan: - Avoid nephrotoxins - Monitor renal panel - Renally dosed medications - Held Lasix in setting of TONO- PT FOUND TO RX LASIX, NO ECHO ON RECORD. PT IS NOT FLUID OVERLOADED AND NO SIGNS OF CHF. WILL CHEMICAL INSPECTOR PT REGARDING MEDS. WILL POSSIBLE DC ON DC. #Hx CAD #History of [place] #Primary hypertension - Patient has history of multiple MIs and coronary artery disease but denies any stents - Patient follows Dr. Araiza outpatient regularly -Patient denies chest pain, pressure palpitation, or shortness of breath Plan: - Plavix 75 mg p.o. - Atorvastatin 10 mg at bedtime #Hyperkalemia (resolve) - On admission potassium is 5.6, patient is given 2 L of fluid by the ED Hospital management: Lines: peripheral IV Diet: Clear liquid diet DVT prophylaxis: Hep sbc Disposition: on golytely, Pending colonoscopy CODE STATUS: Full code Patient assessed under supervision of attending physician and senior resident Dr. Amato PGY-3 Barbara Weiss MD PGY-1, Internal Medicine Please note: this document was transcribed using voice recognition technology; minor inaccuracies may be present Attending Provider Attestation/Addendum I have seen and examined the patient. I was physically present for the delgado portions of the services provided including history, physical exam, diagnosis, treatment plans and orders. I agree with assessment and plan of care as documented by residents. Even though this this note was carefully revised there may still be minor errors in structural iron erector due to voice recognition software. Annetta Mario MD
[2025-06-16] MEDS: RINGERS LACTATED 1000 ML 1,000 ML 75 ML IV (13:09)
--- NOTE | 2025-06-16 15:08 | XR_ITS ---
AP portable upright chest film 06/16/2025 at 3:23 p.m. CLINICAL HISTORY: Status post nasogastric tube placed Comparison study 05/28/2025 FINDINGS: Since the last chest film, a nasogastric catheter has been inserted its tip is located in the proximal third of the stomach, however the sidehole is located at the esophagogastric junction. Hence this should be advanced about 10 cm further into the stomach. The lungs again noted are clear heart size is normal As noted previously, there is at least borderline enlargement of the central pulmonary arteries. There is also major unilateral elevation of the right hemidiaphragm, with the hepatic flexure of the colon lying just beneath the elevated right hemidiaphragm this is an occasional variation of normal anatomy. IMPRESSION: 1. The sidehole of the nasogastric catheter lies immediately at the esophagogastric junction. Therefore the NG tube should be advanced about 10 cm farther into the stomach. 2. Lungs are clear. 3. 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 Probable slight enlargement of the central pulmonary arteries.
--- NOTE | 2025-06-16 18:05 | PD.IMPROG ---
Documentation for date of: 06/16/25 Subjective Subjective Interval history: Patient evaluated GoLytely prep in progress He was on the schedule for colonoscopy today but not clear additional GoLytely Exam Vital Signs Temp Pulse Resp BP Pulse Ox O2 Del Method 97.3 F 79 17 162/77 H 95 Room Air 06/16/25 16:20 06/16/25 16:20 06/16/25 16:20 06/16/25 16:20 06/16/25 16:20 06/16/25 16:20 Objective Labs 06/16/25 04:30 06/16/25 07:12 Labs: Laboratory Results - last 24 hr 06/15/25 06/16/25 06/16/25 04:47 04:30 07:12 WBC 3.6 L RBC 4.72 Hgb 14.8 Hct 44.0 MCV 93 MCH 31.4 MCHC 33.6 RDW Std Deviation 44.1 H Plt Count 227 Neut % (Auto) 64 Lymph % (Auto) 13 [place] % (Auto) 18 H Eos % (Auto) 5 Baso % (Auto) 1 Neut # (Auto) 2.3 Lymph # (Auto) 0.5 L [place] # (Auto) 0.6 Eos # (Auto) 0.2 Baso # (Auto) 0.0 Immature Gran # (Auto) 0.03 H Absolute Nucleated RBC 0.00 Immature Gran % 1 H Nucleated RBC % 0 Sodium 138 Potassium 4.2 Chloride 102 Carbon Dioxide 27.3 Anion Gap 9 BUN 15 Creatinine 1.2 Estim Creat Clear Calc 48.0 L eGFR > 60 BUN/Creatinine Ratio 13 Glucose 91 Calculated Osmolality 276 Calcium 8.7 Corrected Calcium 8.8 Magnesium 2.0 Total Bilirubin 0.6 AST 19 ALT 10 Alkaline Phosphatase 67 Total Protein 6.2 Albumin 3.9 Globulin 2.3 Albumin/Globulin Ratio 1.7 Carcinoembryonic Ag 2.2 06/16/25 07:15 WBC RBC Hgb Hct MCV MCH MCHC RDW Std Deviation Plt Count Neut % (Auto) Lymph % (Auto) [place] % (Auto) Eos % (Auto) Baso % (Auto) Neut # (Auto) Lymph # (Auto) [place] # (Auto) Eos # (Auto) Baso # (Auto) Immature Gran # (Auto) Absolute Nucleated RBC Immature Gran % Nucleated RBC % Sodium Potassium Chloride Carbon Dioxide Anion Gap BUN Creatinine Estim Creat Clear Calc eGFR BUN/Creatinine Ratio Glucose Calculated Osmolality Calcium Corrected Calcium Magnesium Total Bilirubin AST ALT Alkaline Phosphatase Total Protein Albumin Globulin Albumin/Globulin Ratio Carcinoembryonic Ag 2.4 Impressions Impression: Small bowel obstruction in a patient with history of colon carcinoma status post right hemicolectomy GoLytely prep to continue Colonoscopy a.m. Assessment & Plan A&P Narrative # Small bowel obstruction pattern most likely due to abdominal lesions due to previous colonic surgery Plan Continue conservative management Once patient's small bowel obstruction has resolved recommend fibrotic colonoscopy prior to discharge looking to the ileocolonic anastomosis to rule out any stricture CEA level Will follow the patient Clear liquid diet GoLytely prep Consent obtained for fiberoptic colonoscopy possible biopsy possible therapeutic intervention scheduled for tomorrow Thank you for the opportunity to participate in care of this patient Time Spent With Patient Time: Total time spent is greater than 50% in coordination of care (as documented) at patient's floor/unit and/or counseling patient:
[2025-06-16] MEDS: ATORVASTATIN CALCIUM 10 MG TABLET PO (20:35)
[2025-06-16] MEDS: HEPARIN SOD INJ 5000 UNIT/ML VIAL SC (20:35)
[2025-06-17] VITALS (8 sets, daily range): BP systolic 117–163; BP diastolic 77–99; PULSE 72–102; RESP 16–96; TEMP 36.1–37.1; O2SAT 92–94
[2025-06-17] MEDS: RINGERS LACTATED 1000 ML 1,000 ML 75 ML IV ×2 (03:23→19:44)
[2025-06-17] MEDS: NA SU/NAHCO3/KC/PEG (Golytely) 4,000 ML BTL 4000 ML PO (03:36)
[2025-06-17 05:39] LABS: Basophils # (Auto) 0.0 Thou/mm3 (0.0-0.2); Basophils % (Auto) 1 % (0-2.5); Eosinophils # (Auto) 0.1 Thou/mm3 (0.0-0.5); Eosinophils % (Auto) 1 % (0-10); Hematocrit 46.3 % (41.0-53.0); Hemoglobin 15.8 g/dL (13.5-16.0); Immature Granulocytes Auto 0.02 Thou/mm3 (0.00-0.00); Lymphocytes # (Auto) 0.4 Thou/mm3 (1.0-4.8); Lymphocytes % (Auto) 6 % (10-50); Mean Corpuscular HGB Conc 34.1 g/dl (31.0-37.0); Mean Corpuscular Hemoglobin 31.2 pg (25.0-35.0); Mean Corpuscular Volume 92 fL (80-100); Monocytes # (Auto) 0.6 Thou/mm3 (0.0-0.8); Monocytes % (Auto) 10 % (0-12); Neutrophils # (Auto) 5.2 Thou/mm3 (1.8-7.7); Neutrophils % (Auto) 83 % (37-80); Nucleated Red Blood Cell # 0.00 Thou/mm3 (0.00-0.00); Nucleated Red Blood Cell % 0 /100 WBC (0); Platelet Count 245 Thou/mm3 (140-440); RDW Standard Deviation 42.2 fL (35.1-43.9); Red Blood Count 5.06 Miln/mm3 (4.50-5.90); White Blood Count 6.3 Thou/mm3 (3.8-10.6)
[2025-06-17 06:24] LABS: Alanine Aminotransferase 12 U/L (10-49); Albumin, Serum 4.2 gm/dL (3.4-4.8); Albumin/Globulin Ratio 1.7 (1.2-2.2); Alkaline Phosphatase 73 U/L (46-116); Anion Gap 14 (7-16); Aspartate Amino Transferase 25 U/L (0-34); BUN/Creatinine Ratio 9 Ratio (12-20); Bilirubin,Total 0.9 mg/dL (0.3-1.2); Blood Urea Nitrogen 10 mg/dL (9-23); Calcium 9.1 mg/dL (8.3-10.6); Calcium (Corrected) 9.1 mg/dL (8.5-10.1); Carbon Dioxide 24.5 mMol/L (20.0-31.0); Chloride 100 mMol/L (98-107); Creatinine (Component) 1.1 mg/dL (0.6-1.3); Estimated Creatinine Clearance 52.4 mL/min (>60); Globulin 2.5 gm/dL (2.3-3.5); Glucose 92 mg/dL (74-106); Magnesium 1.8 mg/dL (1.6-2.6); Osmolality,Calculated 274 (275-295); Phosphorous 1.8 mg/dL (2.4-5.1); Potassium 4.3 mMol/L (3.4-5.1); Sodium 138 mMol/L (136-145); Total Protein 6.7 gm/dL (5.7-8.2); eGFR > 60 See Note
[2025-06-17] MEDS: NAPH,KPH MBDB 1 PACKET (1.5 GM) 2 PACKET PO (09:26)
[2025-06-17] MEDS: HEPARIN SOD INJ 5000 UNIT/ML VIAL SC ×2 (09:26→20:24)
[2025-06-17] MEDS: CLOPIDOGREL BISULFATE 75 MG TABLET PO (09:26)
--- NOTE | 2025-06-17 15:29 | ESPR_ITS ---
<Statement entered by Shakeel Amato MD - 06/17/25 18:48> Patient was seen and examined at bedside. Agree with assessment and plan in this note. - Patient's plan and care discussed with my attending, Dr. Fabiano Amato MD Internal Medicine PGY-3 Documentation for date of: 06/17/25 Subjective Subjective Interval history: Overnight, the patient was evaluated by Gastroenterology, and an NG tube was placed for GoLytely administration. This morning, the patient was seen and examined at bedside with his daughter, García with sad affect. The daughter reported she was not informed of the NG tube placement overnight and requested to be notified of all care plan changes, citing the patient?s impaired mentation and inability to reliably relay medical information She was reassured that she would be updated going forward.The patient subsequently removed his NG tube and since is currently tolerating oral intake; he was encouraged to continue drinking GoLytely.In the afternoon, the patient reported that a friend was critically ill in the ICU and expressed a desire to visit. Due to the patient being on contact precautions for zoster , he was informed that ICU visitation was not permitted. The patient initially stated he would leave AMA to visit his friend. Met with the patient and family to explain hospital policy, including visitation restrictions. The patient was reassured that a video call could be arranged. He is now agreeable to remain hospitalized and continue GoLytely in preparation for colonoscopy tomorrow. Labs reviewed and noted a phosphorus of 1.8, repleted with Neutra-Phos packet. Exam Vital Signs Temp Pulse Resp BP Pulse Ox O2 Del Method 98.7 F 93 16 148/82 H 93 L Room Air 06/17/25 12:00 06/17/25 12:00 06/17/25 12:00 06/17/25 12:00 06/17/25 12:00 06/17/25 12:00 Narrative Exam General: Alert, no acute distress.Conversational and non-toxic appearing. Skin: Warm, dry, intact. No rash or ecchymoses. Head: Normocephalic, atraumatic. Eye: Normal conjunctiva, PERRL. Throat: Oral mucosa moist. No obvious lesions in oropharynx. Cardiovascular: Regular rate and rhythm, no murmur, +S1/S2. Respiratory: Lungs are clear to auscultation, respirations unlabored, no crackles, no wheezing. Gastrointestinal: Soft, nontender, non-distended. No guarding or rebound tenderness. Extremities: No edema, no cyanosis, no clubbing. Neuro: Alert and oriented x3.No focal deficits observed. Conversant, moving all extremities. No overt cerebellar signs/incoordination. Psychiatric: Cooperative, appropriate affect Objective Labs 06/18/25 04:25 06/18/25 04:25 Labs: Laboratory Results - last 24 hr 06/17/25 05:20 WBC 6.3 D RBC 5.06 Hgb 15.8 Hct 46.3 MCV 92 MCH 31.2 MCHC 34.1 RDW Std Deviation 42.2 Plt Count 245 Neut % (Auto) 83 H Lymph % (Auto) 6 L [place] % (Auto) 10 Eos % (Auto) 1 Baso % (Auto) 1 Neut # (Auto) 5.2 Lymph # (Auto) 0.4 L [place] # (Auto) 0.6 Eos # (Auto) 0.1 Baso # (Auto) 0.0 Immature Gran # (Auto) 0.02 H Absolute Nucleated RBC 0.00 Immature Gran % 0 Nucleated RBC % 0 Sodium 138 Potassium 4.3 Chloride 100 Carbon Dioxide 24.5 Anion Gap 14 BUN 10 Creatinine 1.1 Estim Creat Clear Calc 52.4 L eGFR > 60 BUN/Creatinine Ratio 9 L Glucose 92 Calculated Osmolality 274 L Calcium 9.1 Corrected Calcium 9.1 Phosphorus 1.8 L Magnesium 1.8 Total Bilirubin 0.9 AST 25 ALT 12 Alkaline Phosphatase 73 Total Protein 6.7 Albumin 4.2 Globulin 2.5 Albumin/Globulin Ratio 1.7 Quality Measures Quality Measures none Advance care planning discussed with:: patient and child Assessment & Plan Assessment Current Active Medications: Generic Name Dose Route Start Last Admin Trade Name Freq PRN Reason Stop Dose Admin Acetaminophen 650 mg 06/15/25 15:43 Acetaminophen 325 Mg Tablet PO 07/15/25 15:38 Q4HR PRN pain 1-3 Hydrocodone Bitart/Acetaminophen 1 tab 06/15/25 15:39 Hydrocodone/Apap 5/325 Tablet PO 06/20/25 15:38 Q6HR PRN pain 4-10 Atorvastatin Calcium 10 mg 06/14/25 21:00 06/16/25 20:35 Atorvastatin Calcium 10 Mg Tablet PO 07/14/25 20:59 10 mg HS ODALYS Administration Clopidogrel Bisulfate 75 mg 06/15/25 09:00 06/17/25 09:26 Clopidogrel Bisulfate 75 Mg Tablet PO 07/15/25 08:59 75 mg QDAY ODALYS Administration Heparin Sodium (Porcine) 5,000 unit 06/14/25 09:00 06/17/25 09:26 Heparin Sod Inj 5000 Unit/Ml Vial SC 06/28/25 08:59 5,000 unit Q12HR ODALYS Administration Lactated Ringer's 1,000 mls @ 75 mls/hr 06/14/25 07:52 06/17/25 03:23 Lactated Ringers IV 07/14/25 07:51 75 mls/hr .[id number] ODALYS Administration Ondansetron HCl 4 mg 06/14/25 02:36 06/15/25 14:34 Ondansetron Inj 2 Mg/Ml Inj 2 Ml IVP 07/14/25 02:35 4 mg Q6H PRN Administration NAUSEA OR VOMITING Protocol Simethicone 80 mg 06/15/25 21:00 Simethicone 80 Mg Chew PO 07/15/25 20:59 QID PRN GAS Plan Mr. Tidwell is a 80-year-old male with past medical history significant for hypertension, CAD (no history of stents ), history of multiple MIs, colon cancer status post surgical resection approximately 7 years ago presented to the ED complaining of abdominal pain and nausea. Patient is admitted for management of partial SBO. #Partial small bowel obstruction, vs. Small Bowel ileus #Hx of Colon carcinoma s/p right hemicolectomy DDx enteritis versus adhesions versus postoperative ileus vs strictures - Patient is a poor historian however in initial presentation per ED patient was complaining of abdominal pain with nausea patient denies any vomiting. Small bowel follow-through suggested a possible partial obstruction; however, contrast successfully reached the rectum. The patient denied RUQ pain, and no abdominal tenderness on physical examination. T. bilirubin was within normal limits. Liver ultrasound was limited due to bowel distention. Given the patient reported episode of diarrhea and chills prior to the admission patient possibly had enteritis or partial SBO due to prior history of colon resection. - Patient has hx of colon cancer approximately 7 years ago which was surgically resected and did not undergo any chemotherapy or radiation. Follows up at the cancer center regularly every 6 months -CT of abdomen: Multiple fluid distended small bowel loops, differential would include ileus, enteritis, early small bowel obstruction - Small bowel series ordered by ED. NG tube was not placed because small bowel series was started prior to placement of NG tube 06/15-due to worsening worsening abdominal pain and bloatedness, GI was consulted and KUB was ordered and showed significant partial small bowel obstruction CEA=2.4 Plan: - General Surgery consulted, Dr. Watters recommends outpatient follow-up with GI - Zofran for nausea as needed - GI consulted, recommendation appreciated- SBO pattern most likely due to abdominal lesions from previous colonic surgery. Colonoscopy to rule out any stricture, started golyetely. - Simethicone 80 mg p.o. 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 Patient is not fluid overloaded no signs of CHF. Counseled patient regarding medication. Will discontinue Lasix on discharge. #Hx CAD #History of AR #Primary hypertension - Patient has history of multiple MIs and coronary artery disease but denies any stents - Patient follows Dr. Araiza outpatient regularly -Patient denies chest pain, pressure palpitation, or shortness of breath Plan: - Plavix 75 mg p.o. - Atorvastatin 10 mg at bedtime #Hyperkalemia (resolve) - On admission potassium is 5.6, patient is given 2 L of fluid by the ED Hospital management: Lines: peripheral IV Diet: Clear liquid diet DVT prophylaxis: Hep sbc Disposition: on golytely, Pending colonoscopy CODE STATUS: Full code Patient assessed under supervision of attending physician and resident Dr. Amato PGY-3 Barbara Weiss MD PGY-1, Internal Medicine Please note: this document was transcribed using voice recognition technology; minor inaccuracies may be present Attending Provider Attestation/Addendum I have seen and examined the patient. I was physically present for the delgado portions of the services provided including history, physical exam, diagnosis, treatment plans and orders. I agree with assessment and plan of care as documented by residents. Even though this this note was carefully revised there may still be minor errors in oyster cultivator due to voice recognition software. Annetta Mario MD
--- NOTE | 2025-06-17 16:25 | PD.IMPROG ---
Documentation for date of: 06/17/25 Subjective Subjective Interval history: Patient send blood cleared with the GoLytely drinking Encouraged the p.o. drinking as he pulled out the NGT Exam Vital Signs Temp Pulse Resp BP Pulse Ox O2 Del Method 98.7 F 93 16 148/82 H 93 L Room Air 06/17/25 12:00 06/17/25 12:00 06/17/25 12:00 06/17/25 12:00 06/17/25 12:00 06/17/25 12:00 Objective Labs 06/17/25 05:20 06/17/25 05:20 Labs: Laboratory Results - last 24 hr 06/17/25 05:20 WBC 6.3 D RBC 5.06 Hgb 15.8 Hct 46.3 MCV 92 MCH 31.2 MCHC 34.1 RDW Std Deviation 42.2 Plt Count 245 Neut % (Auto) 83 H Lymph % (Auto) 6 L [place] % (Auto) 10 Eos % (Auto) 1 Baso % (Auto) 1 Neut # (Auto) 5.2 Lymph # (Auto) 0.4 L [place] # (Auto) 0.6 Eos # (Auto) 0.1 Baso # (Auto) 0.0 Immature Gran # (Auto) 0.02 H Absolute Nucleated RBC 0.00 Immature Gran % 0 Nucleated RBC % 0 Sodium 138 Potassium 4.3 Chloride 100 Carbon Dioxide 24.5 Anion Gap 14 BUN 10 Creatinine 1.1 Estim Creat Clear Calc 52.4 L eGFR > 60 BUN/Creatinine Ratio 9 L Glucose 92 Calculated Osmolality 274 L Calcium 9.1 Corrected Calcium 9.1 Phosphorus 1.8 L Magnesium 1.8 Total Bilirubin 0.9 AST 25 ALT 12 Alkaline Phosphatase 73 Total Protein 6.7 Albumin 4.2 Globulin 2.5 Albumin/Globulin Ratio 1.7 Impressions Impression: Colon carcinoma status post colonic resection right hemicolectomy Small bowel obstruction conservatively resolved Continue GoLytely prep Assessment & Plan A&P Narrative # Small bowel obstruction pattern most likely due to abdominal lesions due to previous colonic surgery Plan Continue conservative management Once patient's small bowel obstruction has resolved recommend fibrotic colonoscopy prior to discharge looking to the ileocolonic anastomosis to rule out any stricture CEA level Will follow the patient Clear liquid diet GoLytely prep Consent obtained for fiberoptic colonoscopy possible biopsy possible therapeutic intervention scheduled for tomorrow Thank you for the opportunity to participate in care of this patient Time Spent With Patient Time: Total time spent is greater than 50% in coordination of care (as documented) at patient's floor/unit and/or counseling patient:
[2025-06-17] MEDS: ATORVASTATIN CALCIUM 10 MG TABLET PO (20:21)
[2025-06-18] VITALS (16 sets, daily range): BP systolic 117–152; BP diastolic 63–97; PULSE 65–80; RESP 10–18; TEMP 36.2–37.2; O2SAT 91–97; BMI 21.7
[2025-06-18 06:09] LABS: Basophils # (Auto) 0.0 Thou/mm3 (0.0-0.2); Basophils % (Auto) 0 % (0-2.5); Eosinophils # (Auto) 0.2 Thou/mm3 (0.0-0.5); Eosinophils % (Auto) 3 % (0-10); Hematocrit 39.2 % (41.0-53.0); Hemoglobin 13.4 g/dL (13.5-16.0); Immature Granulocytes Auto 0.04 Thou/mm3 (0.00-0.00); Lymphocytes # (Auto) 0.6 Thou/mm3 (1.0-4.8); Lymphocytes % (Auto) 8 % (10-50); Mean Corpuscular HGB Conc 34.2 g/dl (31.0-37.0); Mean Corpuscular Hemoglobin 32.0 pg (25.0-35.0); Mean Corpuscular Volume 94 fL (80-100); Monocytes # (Auto) 0.8 Thou/mm3 (0.0-0.8); Monocytes % (Auto) 11 % (0-12); Neutrophils # (Auto) 6.2 Thou/mm3 (1.8-7.7); Neutrophils % (Auto) 78 % (37-80); Nucleated Red Blood Cell # 0.00 Thou/mm3 (0.00-0.00); Nucleated Red Blood Cell % 0 /100 WBC (0); Platelet Count 223 Thou/mm3 (140-440); RDW Standard Deviation 44.2 fL (35.1-43.9); Red Blood Count 4.19 Miln/mm3 (4.50-5.90); White Blood Count 7.9 Thou/mm3 (3.8-10.6)
[2025-06-18 06:32] LABS: Anion Gap 11 (7-16); BUN/Creatinine Ratio 8 Ratio (12-20); Blood Urea Nitrogen 8 mg/dL (9-23); Calcium 8.3 mg/dL (8.3-10.6); Carbon Dioxide 27.6 mMol/L (20.0-31.0); Chloride 100 mMol/L (98-107); Creatinine (Component) 1.0 mg/dL (0.6-1.3); Estimated Creatinine Clearance 57.6 mL/min (>60); Glucose 85 mg/dL (74-106); Magnesium 1.7 mg/dL (1.6-2.6); Osmolality,Calculated 274 (275-295); Phosphorous 2.0 mg/dL (2.4-5.1); Potassium 3.9 mMol/L (3.4-5.1); Sodium 139 mMol/L (136-145); eGFR > 60 See Note
--- NOTE | 2025-06-18 09:07 | PC.SS ---
rounding note: Pending colonoscopy. Family prefers SNF. Updated physician team that we need a PT eval as insurance will require authorization for SNF.
[2025-06-18] MEDS: RINGERS LACTATED 1000 ML 1,000 ML 75 ML IV ×2 (09:34→23:27)
--- NOTE | 2025-06-18 11:34 | SUR.PHASEI ---
pt received from OR in recovery bay 1. pt asleep but responds to voice, breathing unlabored on room air. v/s stable. report received from Christina STEIN.
--- NOTE | 2025-06-18 12:10 | SUR.PHASEI ---
pt asleep but responds to voice, breathing unlabored on room air. v/s stable. report called to Wendy STEIN. pt will be transferred to room at this time.
--- NOTE | 2025-06-18 14:44 | ESPR_ITS ---
<Statement entered by Shakeel Amato MD - 06/19/25 16:00> Patient was seen and examined at bedside. I agree in the assessment and plan on this note. - Patient's plan and care discussed with my attending, Dr. Kehinde Amato MD Internal Medicine PGY-3 Documentation for date of: 06/18/25 Subjective Subjective Interval history: No acute event overnight. Patient was seen and examined at bedside pending colonoscopy. Colonoscopy was done and showed internal hemorrhoids and moderate reticulosis in the sigmoid and descending colon. Ileocolonic anastomosis end-to-side in the right side. Per GI recommend repeating colonoscopy in 2 years for surveillance and follow-up GI in 4 weeks. Pending PT evaluation, anticipate discharge in next 24 hours. Exam Vital Signs Temp Pulse Resp BP Pulse Ox O2 Del Method O2 Flow Rate 97.2 F 65 16 130/64 94 L Room Air 3 06/18/25 11:50 06/18/25 12:05 06/18/25 12:05 06/18/25 12:05 06/18/25 12:05 06/18/25 04:00 06/18/25 11:25 Narrative Exam General: Alert, no acute distress.Conversational and non-toxic appearing. Skin: Warm, dry, intact. No rash or ecchymoses. Head: Normocephalic, atraumatic. Eye: Normal conjunctiva, PERRL. Throat: Oral mucosa moist. No obvious lesions in oropharynx. Cardiovascular: Regular rate and rhythm, no murmur, +S1/S2. Respiratory: Lungs are clear to auscultation, respirations unlabored, no crackles, no wheezing. Gastrointestinal: Soft, nontender, non-distended. No guarding or rebound tenderness. Extremities: No edema, no cyanosis, no clubbing. Neuro: Alert and oriented x3.No focal deficits observed. Conversant, moving all extremities. No overt cerebellar signs/incoordination. Psychiatric: Cooperative, appropriate affect Objective Labs 06/19/25 04:55 06/19/25 04:55 Labs: Laboratory Results - last 24 hr 06/18/25 04:25 WBC 7.9 RBC 4.19 L Hgb 13.4 L D Hct 39.2 L MCV 94 MCH 32.0 MCHC 34.2 RDW Std Deviation 44.2 H Plt Count 223 Neut % (Auto) 78 Lymph % (Auto) 8 L [place] % (Auto) 11 Eos % (Auto) 3 Baso % (Auto) 0 Neut # (Auto) 6.2 Lymph # (Auto) 0.6 L [place] # (Auto) 0.8 Eos # (Auto) 0.2 Baso # (Auto) 0.0 Immature Gran # (Auto) 0.04 H Absolute Nucleated RBC 0.00 Immature Gran % 1 H Nucleated RBC % 0 Sodium 139 Potassium 3.9 Chloride 100 Carbon Dioxide 27.6 Anion Gap 11 BUN 8 L Creatinine 1.0 Estim Creat Clear Calc 57.6 L eGFR > 60 BUN/Creatinine Ratio 8 L Glucose 85 Calculated Osmolality 274 L Calcium 8.3 Phosphorus 2.0 L Magnesium 1.7 Quality Measures Quality Measures none Advance care planning discussed with:: patient and other Assessment & Plan Assessment Current Active Medications: Generic Name Dose Route Start Last Admin Trade Name Freq PRN Reason Stop Dose Admin Acetaminophen 650 mg 06/15/25 15:43 Acetaminophen 325 Mg Tablet PO 07/15/25 15:38 Q4HR PRN pain 1-3 Hydrocodone Bitart/Acetaminophen 1 tab 06/15/25 15:39 Hydrocodone/Apap 5/325 Tablet PO 06/20/25 15:38 Q6HR PRN pain 4-10 Atorvastatin Calcium 10 mg 06/14/25 21:00 06/17/25 20:21 Atorvastatin Calcium 10 Mg Tablet PO 07/14/25 20:59 10 mg HS ODALYS Administration Carvedilol 6.25 mg 06/17/25 21:00 06/18/25 09:37 Carvedilol 3.125 Mg Tablet PO 07/17/25 20:59 6.25 mg BID ODALYS Administration Clopidogrel Bisulfate 75 mg 06/15/25 09:00 06/18/25 09:37 Clopidogrel Bisulfate 75 Mg Tablet PO 07/15/25 08:59 Not Given QDAY ODALYS Heparin Sodium (Porcine) 5,000 unit 06/14/25 09:00 06/18/25 09:37 Heparin Sod Inj 5000 Unit/Ml Vial SC 06/28/25 08:59 Not Given Q12HR ODALYS Lactated Ringer's 1,000 mls @ 75 mls/hr 06/14/25 07:52 06/18/25 09:34 Lactated Ringers IV 07/14/25 07:51 75 mls/hr .[id number] ODALYS Administration Ondansetron HCl 4 mg 06/14/25 02:36 06/15/25 14:34 Ondansetron Inj 2 Mg/Ml Inj 2 Ml IVP 07/14/25 02:35 4 mg Q6H PRN Administration NAUSEA OR VOMITING Protocol Simethicone 80 mg 06/15/25 21:00 Simethicone 80 Mg Chew PO 07/15/25 20:59 QID PRN GAS Plan Mr. Tidwell is a 80-year-old male with past medical history significant for hypertension, CAD (no history of stents ), history of multiple MIs, colon cancer status post surgical resection approximately 7 years ago presented to the ED complaining of abdominal pain and nausea. Patient is admitted for management of partial SBO. # Internal hemorrhoids #Moderate diverticulosis in the sigmoid and descending colon #Hx of Colon carcinoma s/p right hemicolectomy DDx enteritis versus adhesions versus postoperative ileus vs strictures - Patient is a poor historian however in initial presentation per ED patient was complaining of abdominal pain with nausea patient denies any vomiting. Small bowel follow-through suggested a possible partial obstruction; however, contrast successfully reached the rectum. The patient denied RUQ pain, and no abdominal tenderness on physical examination. T. bilirubin was within normal limits. Liver ultrasound was limited due to bowel distention. Given the patient reported episode of diarrhea and chills prior to the admission patient possibly had enteritis or partial SBO due to prior history of colon resection. - Patient has hx of colon cancer approximately 7 years ago which was surgically resected and did not undergo any chemotherapy or radiation. Follows up at the cancer center regularly every 6 months -CT of abdomen: Multiple fluid distended small bowel loops, differential would include ileus, enteritis, early small bowel obstruction - Small bowel series ordered by ED. NG tube was not placed because small bowel series was started prior to placement of NG tube 06/15-due to worsening worsening abdominal pain and bloatedness, GI was consulted and KUB was ordered and showed significant partial small bowel obstruction CEA=2.4 Plan: - General Surgery consulted, Dr. Watters recommends outpatient follow-up with GI - Zofran for nausea as needed - GI consulted, recommendation appreciated-colonoscopy 06/08 -Repeat colonoscopy in 2 years for surveillance -Follow-up GI in 4 weeks -High-fiber diet indefinitely - Simethicone 80 mg p.o. 4 times daily for gas #Hx CAD #History of ID #Primary hypertension - Patient has history of multiple MIs and coronary artery disease but denies any stents - Patient follows Dr. Araiza outpatient regularly -Patient denies chest pain, pressure palpitation, or shortness of breath Plan: - Plavix 75 mg p.o. - Atorvastatin 10 mg at bedtime #Hyperkalemia (resolve) #Partial small bowel obstruction, vs. Small Bowel ileus (resolve) #TONO on CKD (resolve) - Will discontinue Lasix on discharge. Hospital management: Lines: peripheral IV Diet: regular DVT prophylaxis: Hep sbc Disposition: pending pt, dc in next 24-48hrs CODE STATUS: Full code Patient assessed under supervision of attending physician and resident Dr. Amato PGY-3 Barbara Weiss MD PGY-1, Internal Medicine Please note: this document was transcribed using voice recognition technology; minor inaccuracies may be present Attending Provider Attestation/Addendum I have discussed and was present for the essential components of the history, physical examination, diagnosis, and treatment plan with the resident. I agree with the patient's care as documented by the resident and amended herein by me. Real Busby DO. Although this document has been carefully reviewed, there may still be some phonetic and other typographical errors. These errors are purely grammatical due to imperfections in the software program and should not be construed in any way to compromise the substance of the patient's medical care during this visit.
--- NOTE | 2025-06-18 15:56 | PC.PT ---
Patient is safe to ambulate to the bathroom and in the room with 1 staff as he has contact precautions and is unable to ambulate outside his room. RN made aware.
--- NOTE | 2025-06-18 16:06 | PC.SS ---
follow up note: SS spoke to PT and patient was independent with ADL's. No AD. PT recommended HH services. SS updated daughter. Daughter is agreeable but is wanting to discharge him tomorrow to gather housing and medications. SS will update physician team. She may want to send him to a hotel for weekend while she cleans his home.
[2025-06-18] MEDS: ATORVASTATIN CALCIUM 10 MG TABLET PO (20:35)
[2025-06-18] MEDS: HEPARIN SOD INJ 5000 UNIT/ML VIAL SC (20:35)
[2025-06-19] VITALS: BP 146/71; PULSE 85; RESP 16; TEMP 37.1; O2SAT 95
[2025-06-19 04:00] VITALS: BP 118/63; PULSE 74; RESP 17; TEMP 36.6; O2SAT 94
[2025-06-19 06:15] LABS: Basophils # (Auto) 0.0 Thou/mm3 (0.0-0.2); Basophils % (Auto) 0 % (0-2.5); Eosinophils # (Auto) 0.4 Thou/mm3 (0.0-0.5); Eosinophils % (Auto) 6 % (0-10); Hematocrit 38.4 % (41.0-53.0); Hemoglobin 12.8 g/dL (13.5-16.0); Immature Granulocytes Auto 0.07 Thou/mm3 (0.00-0.00); Lymphocytes # (Auto) 0.6 Thou/mm3 (1.0-4.8); Lymphocytes % (Auto) 8 % (10-50); Mean Corpuscular HGB Conc 33.3 g/dl (31.0-37.0); Mean Corpuscular Hemoglobin 31.2 pg (25.0-35.0); Mean Corpuscular Volume 94 fL (80-100); Monocytes # (Auto) 0.9 Thou/mm3 (0.0-0.8); Monocytes % (Auto) 12 % (0-12); Neutrophils # (Auto) 5.3 Thou/mm3 (1.8-7.7); Neutrophils % (Auto) 73 % (37-80); Nucleated Red Blood Cell # 0.00 Thou/mm3 (0.00-0.00); Nucleated Red Blood Cell % 0 /100 WBC (0); Platelet Count 238 Thou/mm3 (140-440); RDW Standard Deviation 44.7 fL (35.1-43.9); Red Blood Count 4.10 Miln/mm3 (4.50-5.90); White Blood Count 7.3 Thou/mm3 (3.8-10.6)
[2025-06-19 06:40] LABS: Anion Gap 9 (7-16); BUN/Creatinine Ratio 12 Ratio (12-20); Blood Urea Nitrogen 13 mg/dL (9-23); Calcium 8.1 mg/dL (8.3-10.6); Carbon Dioxide 26.8 mMol/L (20.0-31.0); Chloride 102 mMol/L (98-107); Creatinine (Component) 1.1 mg/dL (0.6-1.3); Estimated Creatinine Clearance 52.4 mL/min (>60); Glucose 134 mg/dL (74-106); Magnesium 1.8 mg/dL (1.6-2.6); Osmolality,Calculated 277 (275-295); Phosphorous 2.5 mg/dL (2.4-5.1); Potassium 3.8 mMol/L (3.4-5.1); Sodium 138 mMol/L (136-145); eGFR > 60 See Note
[2025-06-19 08:00] VITALS: BP 143/80; PULSE 70; RESP 18; TEMP 36.4; O2SAT 94
[2025-06-19 08:57] VITALS: BP 143/80; PULSE 70
[2025-06-19] MEDS: HEPARIN SOD INJ 5000 UNIT/ML VIAL SC (08:57)
[2025-06-19] MEDS: CLOPIDOGREL BISULFATE 75 MG TABLET PO (08:57)
[2025-06-19 12:00] VITALS: BP 137/69; PULSE 74; RESP 18; TEMP 36.4; O2SAT 93
--- NOTE | 2025-06-19 12:22 | ESDS_ITS ---
<Statement entered by Shakeel Amato MD - 06/19/25 16:02> Patient was seen and examined at bedside. I agree in the assessment and plan on this note. - Patient's plan and care discussed with my attending, Dr. Kehinde Amato MD Internal Medicine PGY-3 Planned Discharge Date 06/19/25 DS: Providers Provider Date of admission: 06/14/25 03:08 Primary care physician: Juan Gandhi MD Admitting Provider: Khadijah Kim DO Attending Provider on Admission: Annetta Mario MD Consults: 06/14/25 03:10 Consult to General Surgery Routine Comment: Consulting Provider: Mary Watters 06/15/25 15:57 Consult to Gastroenterology Urgent Comment: Worsening abd pain Consulting Provider: Henry Jarquin 06/18/25 10:39 Referral Physical Therapy Urgent Comment: Physician Instructions: Attending Provider on DC: Pan Busby MD Discharging Provider: Pan Busby MD Anticipated date of discharge: 06/19/25 DS: Diagnosis Problem List Completed Was Problem List Reviewed/Reconciled?: Yes Hospital Course Hospital Course Hospital course: Summary Mr. Tidwell is a 80-year-old male with past medical history significant for hypertension, CAD (no history of stents ), history of multiple MIs, colon cancer status post right hemicolectomy approximately 7 years ago presented to the ED complaining of abdominal pain and nausea. Patient states that he was recently treated for shingles on the right flank. No vesicles noted, healing scabs are noted. Admitted for management of SBO. He has a history of umbilical hernia and inguinal hernias. CT abdomen pelvis was done in the ED showing multiple fluid distended small bowel loops concerning for ileus versus enteritis versus SBO. Has a distended gallbladder with enlarged CBD of 9 mm. Surgery consulted and small bowel series ordered by ED. Workup indicative of SBO which resolved without NG placement and general surgery recommended follow-up with GI for surveillance. However during the hospital stay, patient reported worsening abdominal pain associated with bloating. Patient was started on simethicone and repeat KUB showed partial SBO. GI was consulted, patient was started on GoLytely and colonoscopy was done on 06/18/2025. Colonoscopy showed internal hemorrhoids with colonic diverticulosis, ileocolonic anastomosis without stenosis no masses.Throughout the hospital course patient other problems were managed and his condition improved remarkably with progression of hospital course. Further plan to discharge the patient home since he is stable and responded well to hospital treatment. Discharge recommendation: - Follow up with PCP in 1-2 weeks, If you don't have a PCP, you can make an appointment at the [facility]: - Follow up with accounting director in 4 weeks and outpatient colonoscopy in 2years for surveillance - Increase fiber intake diet and hydration as colonoscopy did show moderate diverticulosis in the colon - Continue to follow up with oncologist outpatient - Prescribed new Miralax as needed for constipation - Continue rest of medications as previously prescribed - Return to the ED or call EMS is symptoms return and/or worsen Hospital Diagnoses: #Internal hemorrhoids #Moderate diverticulosis in the sigmoid and descending colon #Hx of Colon carcinoma s/p right hemicolectomy #Hx CAD #History of ND #Primary hypertension #Hyperkalemia (resolve) #Partial small bowel obstruction, vs. Small Bowel ileus (resolve) #TONO on CKD (resolve) Patient assessed under supervision of attending physician and senior resident Dr. Amato PGY-3 Barbara Weiss MD PGY-1, Internal Medicine Please note: this document was transcribed using voice recognition technology; minor inaccuracies may be present. Time Spent with Patient Time attestation: Total time spent providing and/or coordinating discharge services: Time spent: Greater than 30 minutes Exam Vital Signs Temp Pulse Resp BP Pulse Ox O2 Del Method O2 Flow Rate 97.6 F 70 18 143/80 H 94 L Room Air 3 06/19/25 08:00 06/19/25 08:57 06/19/25 08:00 06/19/25 08:57 06/19/25 08:00 06/19/25 08:00 06/18/25 11:25 Narrative Exam General: Alert, no acute distress.Conversational and non-toxic appearing. Skin: Warm, dry, intact. right flank rash that is scabbed Head: Normocephalic, atraumatic. Eye: Normal conjunctiva, PERRL. Throat: Oral mucosa moist. No obvious lesions in oropharynx. Cardiovascular: Regular rate and rhythm, no murmur, +S1/S2. Respiratory: Lungs are clear to auscultation, respirations unlabored, no crackles, no wheezing. Gastrointestinal: Soft, nontender, non-distended. No guarding or rebound tenderness. Extremities: No edema, no cyanosis, no clubbing. Neuro: Alert and oriented x3.No focal deficits observed. Conversant, moving all extremities. No overt cerebellar signs/incoordination. Psychiatric: Cooperative, appropriate affect Objective Discharge Plan Plan Patient Disposition: Home w/HOME HEALTH Patient condition on transfer: Stable and Benefits outweigh risks Care Plan Goals: - Follow up with PCP in 1-2 weeks, If you don't have a PCP, you can make an appointment at the [facility]: - Follow up with accounting director in 4 weeks and outpatient colonoscopy in 2years for surveillance - Increase fiber intake diet and hydration as colonoscopy did show moderate diverticulosis in the colon - Continue to follow up with oncologist outpatient - Prescribed new Miralax as needed for constipation - Continue rest of medications as previously prescribed - Return to the ED or call EMS is symptoms return and/or worsen Prescriptions/Referrals Prescriptions/Med Rec: New polyethylene glycol 3350 [Miralax] 17 gram powder in packet 17 g PO QDAY PRN (Reason: constipation) Qty: 14 0RF Continued nitroglycerin 0.4 mg tablet, sublingual 0.4 mg sublingual Q5M PRN (Reason: chest pain) Rx Instructions: do not exceed 3 doses per episode furosemide [Lasix] 40 MG tablet 40 mg PO QAM Qty: 0 carvedilol [Coreg] 6.25 MG tablet 6.25 mg PO BID Qty: 0 atorvastatin [Lipitor] 10 MG tablet 10 mg PO HS Qty: 0 lisinopril 2.5 MG tablet 2.5 mg PO QDAY Qty: 0 clopidogrel 75 mg Tablet 75 mg PO QDAY famotidine 40 mg Tablet 20 mg PO BID Rx Instructions: half tab po bid. acetaminophen-codeine 300-15 mg tablet 1 tab PO Q8H MDD 3 tab PRN (Reason: pain) Qty: 20 0RF Referrals: [facility] [Outside] Juan Gandhi MD [Primary Care Provider, Family Practice] Henry Jarquin MD [Physician, Gastroenterology] Patient/Caregiver Discharge Instructions Discharge Activity: activity as tolerated Education Materials: Eating a High-Fiber Diet, Obstruction Intestinal Print Language: Yi Stand Alone Forms: Pham Award Info., Patient Portal Info Letter Discharge Order Discharge Orders: Discharge (Routine); Ordered 06/19/25 Ordered By: Shakeel Amato Quality Discharge Quality Measures VTE prophylaxis Attestestation Attestation I have discussed and was present for the essential components of the discharge history, physical examination, diagnosis, and discharge treatment plan with the resident. I agree with the patient's discharge care as documented by the resident and amended herein by me. Real Busby DO. The patient understood all discharge instructions, all questions were answered satisfactorily. The patient was instructed to return to the Emergency Department is symptoms worsened or persisted. Patient will need to follow-up with gastroenterology in approximately 4 weeks for biopsy results and maintain a high-fiber diet. Colonoscopy during this visit significant for hemorrhoids and diverticulosis. Repeat colonoscopy in 2 years per gastroenterology recommendations. Patient was stable, afebrile, tolerating p.o. intake at time of discharge home with home health for physical therapy. Although this document has been carefully reviewed, there may still be some phonetic and other typographical errors. These errors are purely grammatical due to imperfections in the software program and should not be construed in any way to compromise the substance of the patient's medical care during this visit.
--- NOTE | 2025-06-19 15:02 | PD.IMPROG ---
Documentation for date of: 06/19/25 Subjective Subjective Interval history: Patient evaluated Colonoscopy showed no significant obstruction or stenosis at the end-to-side ileocolonic anastomosis Doing much better Exam Vital Signs Temp Pulse Resp BP Pulse Ox O2 Del Method O2 Flow Rate 97.6 F 74 18 137/69 H 93 L Room Air 3 06/19/25 12:00 06/19/25 12:00 06/19/25 12:00 06/19/25 12:00 06/19/25 12:00 06/19/25 08:00 06/18/25 11:25 Objective Labs 06/19/25 04:55 06/19/25 04:55 Labs: Laboratory Results - last 24 hr 06/19/25 04:55 WBC 7.3 RBC 4.10 L Hgb 12.8 L Hct 38.4 L MCV 94 MCH 31.2 MCHC 33.3 RDW Std Deviation 44.7 H Plt Count 238 Neut % (Auto) 73 Lymph % (Auto) 8 L [place] % (Auto) 12 Eos % (Auto) 6 Baso % (Auto) 0 Neut # (Auto) 5.3 Lymph # (Auto) 0.6 L [place] # (Auto) 0.9 H Eos # (Auto) 0.4 Baso # (Auto) 0.0 Immature Gran # (Auto) 0.07 H Absolute Nucleated RBC 0.00 Immature Gran % 1 H Nucleated RBC % 0 Sodium 138 Potassium 3.8 Chloride 102 Carbon Dioxide 26.8 Anion Gap 9 BUN 13 Creatinine 1.1 Estim Creat Clear Calc 52.4 L eGFR > 60 BUN/Creatinine Ratio 12 Glucose 134 H D Calculated Osmolality 277 Calcium 8.1 L Phosphorus 2.5 Magnesium 1.8 Impressions Impression: Ileocolonic anastomosis patent no signs of any obstruction Okay to discharge patient home I will see him back in follow-up if necessary in the office Assessment & Plan A&P Narrative # Small bowel obstruction pattern most likely due to abdominal lesions due to previous colonic surgery Plan Continue conservative management Once patient's small bowel obstruction has resolved recommend fibrotic colonoscopy prior to discharge looking to the ileocolonic anastomosis to rule out any stricture CEA level Will follow the patient Clear liquid diet GoLytely prep Consent obtained for fiberoptic colonoscopy possible biopsy possible therapeutic intervention scheduled for tomorrow Thank you for the opportunity to participate in care of this patient Time Spent With Patient Time: Total time spent is greater than 50% in coordination of care (as documented) at patient's floor/unit and/or counseling patient:
--- NOTE | 2025-06-23 18:20 | PC.CC ---
hh ref sent out, [facility] declined, [facility] accepted and booked, soc pending
--- NOTE | 2025-06-28 11:05 | PC.CC ---
[facility] unable to reach patient to set up SOC
== END 2025-06-19 15:20 | disposition home health service (06) ==
LOC: SERX 19:37 → S3NX 06-14 06:19 → SERHOLD 06-15 10:43 → S3NX 06-15 10:43
PROVIDERS: Nurse Practitioner Family; Specialist; Admitting Provider Internal Medicine; Emergency Provider Emergency Medicine; PCP Family Medicine; Visit Provider Student in an Organized Health Care Education/Training Program
PROC: 0DJD8ZZ Inspection of Lower Intestinal Tract, Via Natural or Artificial Opening Endoscopic (ICD-10-PCS; CPT 45378; principal; 2025-06-18 10:00)
DX: K64.8 Other hemorrhoids (principal); K57.30 Diverticulosis of large intestine without perforation or abscess without bleeding; I25.10 Atherosclerotic heart disease of native coronary artery without angina pectoris; I25.2 Old myocardial infarction; I12.9 Hypertensive chronic kidney disease with stage 1 through stage 4 chronic kidney disease, or unspecified chronic kidney disease; N18.9 Chronic kidney disease, unspecified; N17.9 Acute kidney failure, unspecified; E87.5 Hyperkalemia; Z85.038 Personal history of other malignant neoplasm of large intestine; K82.8 Other specified diseases of gallbladder; N40.0 Benign prostatic hyperplasia without lower urinary tract symptoms; Z90.49 Acquired absence of other specified parts of digestive tract
CPT/HCPCS: 45378; 36415; 51702; 74018; 74176; 74250; 76705; 80048; 80053; 80061; 81001; 82378; 83690; 83735; 84100; 85025; 96360; 96361; 96372; 96374; 96375; 96376; 97162; 99284; A4314; A4649; G0378; J0131; J1200; J1644; J2250; J2405; J3010; J3490; J7030; J7120; Q9963; A9270